=== PATIENT | female | born 1980 | race Caucasian/White ===

== ENCOUNTER 2017-11-04 02:11 | Outpatient (CLI) | payer OTHER | END 2017-11-04 02:12 | disposition critical access hospital (66) | LOC: EMS 02:11 | PROVIDERS: ATTEND Surgery | DX: R09.89 Other specified symptoms and signs involving the circulatory and respiratory systems (principal); F41.9 Anxiety disorder, unspecified | CPT/HCPCS: A0425; A0429 ==

== ENCOUNTER 2017-11-04 02:28 | Emergency (ER) | payer OTHER ==
--- NOTE | 2017-11-04 02:51 | ED Physician Documentation ---
PD HPI CHEST PAIN - Stated complaint Stated Complaint: ANXIETY - Chief complaint Chief Complaint: General - History obtained from History obtained from: Patient - History of Present Illness Timing - onset: Today Timing - onset during: Rest, Light activity Timing - details: Gradual onset, Still present (onset of feeling anxious and panic today, worse this evening. Has had similar in the past due to panic attacks. Usually can do breathing exercises and relax at home. Has come to ER about 1-2 times per year, per patient. Moved from [place] to [facility] last April. Has had anxiety increased since that time. Does have counselor. No recent change in meds.) Quality: Pressure, Tightness Location: Substernal Radiation: Back. No: Jaw, Neck Worsened by: No: Inspiration, Movement, Palpation Associated symptoms: Palpitations. No: Shortness of air, Nausea, Vomiting, Feeling faint / dizzy, General Weakness Similar symptoms before: Diagnosis (panic attacks) Recently seen: Not recently seen Review of Systems Constitutional: denies: Fever Nose: denies: Rhinorrhea / runny nose, Congestion Throat: denies: Sore throat Cardiac: reports: Chest pain / pressure. denies: Palpitations, Pedal edema, Calf pain Respiratory: reports: Dyspnea. denies: Cough, Hemoptysis, Wheezing GI: denies: Abdominal Pain, Nausea, Vomiting, Diarrhea : denies: Dysuria, Frequency Skin: denies: Rash, Lesions Neurologic: denies: Generalized weakness, Focal weakness, Numbness, Altered mental status, Headache, Head injury Endocrine: reports: Weight loss (about 25 lbs through diet and some exercise.) PD PAST MEDICAL HISTORY - Past Medical History Cardiovascular: None Respiratory: None Neuro: None Endocrine/Autoimmune: None Psych: Depression, Anxiety - Present Medications Home Medications: Ambulatory Orders Medication Instructions Recorded Confirmed Citalopram [CeleXA] 30 mg PO DAILY 11/04/17 11/04/17 Divalproex Sodium [Divalproex 500 mg PO QPM 11/04/17 11/04/17 Sodium ER] LORazepam [Ativan] 0.5 mg PO HS 11/04/17 11/04/17 Quetiapine Fumarate 300 mg PO QPM 11/04/17 11/04/17 Quetiapine Fumarate [Quetiapine 300 mg PO QPM 11/04/17 11/04/17 Fumarate ER] - Allergies Allergies/Adverse Reactions: Allergies Allergy/AdvReac Type Severity Reaction Status Date / Time Penicillins AdvReac Hives Verified 11/04/17 03:13 PD ED PE NORMAL - Vitals Vital signs reviewed: Yes (fast heart rate) - General General: Alert and oriented X 3, No acute distress, Well developed/nourished - HEENT HEENT: Ears normal, Pharynx benign - Neck Neck: Supple, no meningeal sign, No adenopathy - Cardiac Cardiac: No murmur. No: RRR (regular but tachycardic) - Respiratory Respiratory: Clear bilaterally - Abdomen Abdomen: Soft, Non tender - Female Female : Deferred - Rectal Rectal: Deferred - Back Back: No CVA TTP - Derm Derm: Normal color, Warm and dry - Extremities Extremities: No deformity, No tenderness to palpate, Normal ROM s pain, No edema , No calf tenderness / cord - Neuro Neuro: Alert and oriented X 3, No motor deficit, Normal speech Eye Opening: Spontaneous Motor: Obeys Commands Verbal: Oriented GCS Score: 15 - Psych Psych: Normal mood. No: Normal affect (slightly anxious but pleasant and interacts well. ) Results - Vitals Vitals: Vital Signs - 24 hr 11/04/17 11/04/17 11/04/17 02:30 03:22 03:56 Temperature 36.7 C Heart Rate 128 H 121 H 115 H Respiratory 18 18 16 Rate Blood Pressure 141/86 H 116/69 120/75 O2 Saturation 96 95 93 11/04/17 05:00 Temperature Heart Rate 109 H Respiratory 18 Rate Blood Pressure 109/76 O2 Saturation 94 Oxygen O2 Source Room air - EKG (time done) 04:21 Rate: Rate (enter#) (115) Rhythm: Sinus tachycardia [place]: Normal Intervals: Normal [place] QRS: Normal Ischemia: Normal ST segments. No: ST elevation c/w ischemia, ST depression, T wave inversion - Labs Labs: Laboratory Tests 11/04/17 11/04/17 03:10 03:10 WBC 9.6 RBC 4.36 Hgb 13.3 Hct 37.7 MCV 86.4 MCH 30.4 MCHC 35.2 RDW 15.4 H Plt Count 192 MPV 7.9 Neut # 6.9 H Lymph # 1.7 [place] # 0.9 Eos # 0.1 Baso # 0.1 Absolute Nucleated RBC 0.00 Nucleated RBC % 0.0 Sodium 138 Potassium 3.4 L Chloride 105 Carbon Dioxide 26 Anion Gap 7.0 BUN 18 Creatinine 0.9 Estimated GFR (MDRD) 71 L Glucose 126 H Calcium 8.8 Magnesium 2.1 Total Bilirubin 0.6 AST 21 ALT 28 Alkaline Phosphatase 29 L Total Protein 6.7 Albumin 3.8 Globulin 2.9 Albumin/Globulin Ratio 1.3 Lipase 22 Last Dose Date UNK Last Dose Time UNK Valproic Acid 18.1 PD MEDICAL DECISION MAKING - ED course Complexity details: re-evaluated patient (slept a few hours. Not feeling panic/ anxious at this point. Slight lightheaded ith standing up from having laid down awhile. Will rouse her slowly. ), considered differential (no obvious other cause for the chest pressure and fast heart rate. She says feels similar to prior episodes of panic disorder. ), d/w patient Departure - Departure Disposition: 01 Home, Self Care Clinical Impression: Panic attack, Sinus tachycardia Condition: Stable Record reviewed to determine appropriate education?: Yes Instructions: ED Panic Attack Follow-Up: ANJELICA Perera [Provider Group] Comments: Continue usual medications. Stay well hydrated and have some regular exercise several times weekly. Return if symptoms worse again.
[2017-11-04] MEDS ORDERED: LORazepam 0.5 MG TABLET PO STA (03:02)
[2017-11-04 03:20] LABS: BASOPHILS # (AUTO) 0.1 10^3/uL (0.0-0.1); BASOPHILS % (AUTO) 0.6 %; EOSINOPHILS # (AUTO) 0.1 10^3/uL (0.0-0.7); EOSINOPHILS % (AUTO) 0.6 %; HGB - HEMOGLOBIN 13.3 g/dL (12.0-16.0); LYMPHOCYTES # (AUTO) 1.7 10^3/uL (1.5-3.5); MEAN CORPUSCULAR HEMOGLOBIN 30.4 pg (27.0-31.0); MEAN CORPUSCULAR HGB CONC 35.2 g/dL (32.0-36.0); MEAN CORPUSCULAR VOLUME 86.4 fL (81.0-99.0); MEAN PLATELET VOLUME 7.9 fL (7.9-10.8); MONOCYTES # (AUTO) 0.9 10^3/uL (0.0-1.0); MONOCYTES % (AUTO) 9.2 %; NEUTROPHILS # (AUTO) 6.9 10^3/uL (1.5-6.6); NEUTROPHILS % (AUTO) 71.6 %; PLT - PLATELET COUNT 192 10^3/uL (130-450); RED BLOOD COUNT 4.36 10^6/uL (4.20-5.40); RED CELL DISTRIBUTION WIDTH 15.4 % (12.0-15.0); WHITE BLOOD COUNT 9.6 x10^3/uL (4.8-10.8)
[2017-11-04 03:32] LABS: ALBUMIN 3.8 g/dL (3.2-5.5); ALBUMIN/GLOBULIN RATIO 1.3 (1.0-2.2); ALKALINE PHOSPHATASE 29 IU/L (42-121); ALT ALANINE AMINOTRANSFERASE 28 IU/L (10-60); AST ASPARTATE AMINOTRANSFERASE 21 IU/L (10-42); BILIRUBIN,TOTAL 0.6 mg/dL (0.2-1.0); BUN - BLOOD UREA NITROGEN 18 mg/dL (6-20); CALCIUM 8.8 mg/dL (8.5-10.3); CARBON DIOXIDE - CO2 26 mmol/L (21-32); CHLORIDE 105 mmol/L (101-111); CREATININE 0.9 mg/dL (0.4-1.0); GFR - MDRD 71 (>89); GLUCOSE 126 mg/dL (70-100); LIPASE 22 U/L (22-51); MAGNESIUM 2.1 mg/dL (1.7-2.8); SODIUM 138 mmol/L (135-145); TOTAL PROTEIN 6.7 g/dL (6.7-8.2); VALPROIC ACID (DEPAKOTE) 18.1 ug/mL
[2017-11-04 08:29] VITALS: BP 118/84
== END 2017-11-04 08:31 | disposition home or self-care (01) ==
LOC: ED 02:28
DX: F41.9 Anxiety disorder, unspecified (principal); R00.0 Tachycardia, unspecified
CPT/HCPCS: 80053; 80164; 83690; 83735; 85025; 93005; 99283; 99284; A9270; 36415

== ENCOUNTER 2017-11-23 00:08 | Outpatient (CLI) | payer OTHER | END 2017-11-23 00:09 | disposition critical access hospital (66) | LOC: EMS 00:08 | PROVIDERS: ATTEND Surgery | DX: F41.9 Anxiety disorder, unspecified (principal) | CPT/HCPCS: A0425; A0429 ==

== ENCOUNTER 2017-11-23 00:23 | Emergency (ER) | payer OTHER ==
[2017-11-23] MEDS ORDERED: LORazepam 0.5 MG TABLET PO STA (00:53)
--- NOTE | 2017-11-23 00:54 | ED Physician Documentation ---
PD HPI MHE - Stated complaint Stated Complaint: PANIC ATTACK - Chief complaint Chief Complaint: MHE - History obtained from History obtained from: Patient, EMS - History of Present Illness Primary symptom: Anxiety Timing - onset: Today Similar symptoms before: Work up / diagnostics, Treatment Recently seen: Not recently seen - Additional information Additional information: Patient is a 37 year old female with a history of depression, anxiety, insomnia and ptsd who is presenting to the emergency department for a panic attack. patient states that she took her nightly medications which includes 600mg of trazadone as well as ativan but was still feeling anxious. patient stated that she did not want to take any more medications without being monitored so she called ems to bring her to the emergency department for evaluation. Review of Systems Ten Systems: 10 systems reviewed and negative Cardiac: denies: Chest pain / pressure, Palpitations Psychiatric: reports: Anxiety, Insomnia. 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 - Present Medications Home Medications: Ambulatory Orders Medication Instructions Recorded Confirmed Citalopram [CeleXA] 30 mg PO DAILY 11/04/17 11/04/17 Divalproex Sodium [Divalproex 500 mg PO QPM 11/04/17 11/04/17 Sodium ER] LORazepam [Ativan] 0.5 mg PO HS 11/04/17 11/04/17 Quetiapine Fumarate 300 mg PO QPM 11/04/17 11/04/17 Quetiapine Fumarate [Quetiapine 300 mg PO QPM 11/04/17 11/04/17 Fumarate ER] - Allergies Allergies/Adverse Reactions: Allergies Allergy/AdvReac Type Severity Reaction Status Date / Time Penicillins AdvReac Hives Verified 11/23/17 00:48 - Social History Does the pt smoke?: Yes Smoking Status: Current every day smoker Does the pt drink ETOH?: No Does the pt have substance abuse?: No - Immunizations Immunizations are current?: Yes - POLST Patient has POLST: No PD ED PE NORMAL - Vitals Vital signs reviewed: Yes - General General: Alert and oriented X 3 - HEENT HEENT: Atraumatic - Respiratory Respiratory: No respiratory distress - Abdomen Abdomen: Non distended - Derm Derm: Normal color, No rash - Extremities Extremities: No deformity - Neuro Neuro: Alert and oriented X 3, No motor deficit Eye Opening: Spontaneous PD ED PE EXPANDED - General General: Alert, Anxious - Cardiac Cardiac: Tachy - Psych Psych: Anxious Results - Vitals Vitals: Vital Signs - 24 hr 11/23/17 11/23/17 11/23/17 00:25 01:42 02:04 Temperature 36.5 C Heart Rate 123 H 115 H Respiratory 18 16 Rate Blood Pressure 143/89 H O2 Saturation 96 Oxygen O2 Source Room air PD MEDICAL DECISION MAKING - ED course Complexity details: reviewed old records, reviewed results, re-evaluated patient , considered differential, d/w patient ED course: patient was seen and examined at bedside. patient was treated with ativan 0.5mg. patient's tachycardia and anxiety improved. Patient required no further inpatient management and was stable for discharge with outpatient follow up. Departure - Departure Disposition: 01 Home, Self Care Clinical Impression: Panic attack Condition: Stable Instructions: ED Stress React, ED Panic Attack Follow-Up: primary,care provider [Other] - Tomorrow Comments: Your symptoms tonight were likely secondary to a panic attack. You should work on your coping mechanisms including breathing exercises and cognitive therapy. You should work with your health care provider and incorporate exercise into your regiment. You may return to the emergency department at any time if needed for new, worsening or uncontrollable symptoms.
[2017-11-23 05:15] VITALS: BP 104/72
== END 2017-11-23 05:39 | disposition home or self-care (01) ==
LOC: EDUNIT# → ED 00:23
DX: F41.0 Panic disorder [episodic paroxysmal anxiety] (principal); F17.200 Nicotine dependence, unspecified, uncomplicated; R00.0 Tachycardia, unspecified
CPT/HCPCS: 99283; A9270

== ENCOUNTER 2017-11-29 10:21 | Emergency (ER) | payer OTHER ==
--- NOTE | 2017-11-29 13:14 | ED Physician Documentation ---
PD HPI LOWER EXT INJURY - Stated complaint Stated Complaint: L LEG PX-LUMP/BRUISE - Chief complaint Chief Complaint: Ext Problem - History obtained from History obtained from: Patient - History of Present Illness PD HPI LOW EXT INJURY LOCATION: Other (She has had indolent and atraumatic left leg pain of the calf for the last 3 weeks with some bruising, no recollected injury. She denies chest pain or trouble breathing. She has never had a DVT before. 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 - Present Medications Home Medications: Ambulatory Orders Medication Instructions Recorded Confirmed Citalopram [CeleXA] 30 mg PO DAILY 11/04/17 11/04/17 Divalproex Sodium [Divalproex 500 mg PO QPM 11/04/17 11/04/17 Sodium ER] LORazepam [Ativan] 0.5 mg PO HS 11/04/17 11/04/17 Quetiapine Fumarate 300 mg PO QPM 11/04/17 11/04/17 Quetiapine Fumarate [Quetiapine 300 mg PO QPM 11/04/17 11/04/17 Fumarate ER] - Allergies Allergies/Adverse Reactions: Allergies Allergy/AdvReac Type Severity Reaction Status Date / Time Penicillins AdvReac Hives Verified 11/23/17 00:48 - Social History Does the pt smoke?: Yes Smoking Status: Current every day smoker Does the pt drink ETOH?: No Does the pt have substance abuse?: No - Immunizations Immunizations are current?: Yes - POLST Patient has POLST: No PD ED PE NORMAL - Vitals Vital signs reviewed: Yes - General General: Alert and oriented X 3, No acute distress - Cardiac Cardiac: RRR, No murmur - Respiratory Respiratory: No respiratory distress, Clear bilaterally - Abdomen Abdomen: Soft, Non tender - Extremities Extremities: Other (There is some firm areas of ecchymosis on the calf, no obvious asymmetry but she does have a little sock line on the left that is not present on the right.) - Neuro Neuro: Alert and oriented X 3, Normal speech - Psych Psych: Normal mood, Normal affect Results - Vitals Vitals: Vital Signs - 24 hr 11/29/17 10:32 Temperature 36.5 C Heart Rate 112 H Respiratory 20 Rate Blood Pressure 136/78 H O2 Saturation 98 Oxygen O2 Source Room air - Labs Labs: Laboratory Tests 11/29/17 11/29/17 11/29/17 13:26 13:26 13:26 WBC 7.5 RBC 4.55 Hgb 13.8 Hct 39.7 MCV 87.2 MCH 30.3 MCHC 34.8 RDW 15.3 H Plt Count 199 MPV 7.6 L Neut # 5.0 Lymph # 1.7 [place] # 0.7 Eos # 0.1 Baso # 0.1 Absolute Nucleated RBC 0.00 Nucleated RBC % 0.0 PT 11.4 INR 1.0 Sodium 135 Potassium 3.7 Chloride 103 Carbon Dioxide 25 Anion Gap 7.0 BUN 14 Creatinine 0.6 Estimated GFR (MDRD) 114 Glucose 129 H Calcium 9.4 Total Bilirubin 0.9 AST 25 ALT 32 Alkaline Phosphatase 31 L Total Protein 7.1 Albumin 3.9 Globulin 3.2 Albumin/Globulin Ratio 1.2 Lipase 23 Serum HCG, Qual 11/29/17 13:32 WBC RBC Hgb Hct MCV MCH MCHC RDW Plt Count MPV Neut # Lymph # [place] # Eos # Baso # Absolute Nucleated RBC Nucleated RBC % PT INR Sodium Potassium Chloride Carbon Dioxide Anion Gap BUN Creatinine Estimated GFR (MDRD) Glucose Calcium Total Bilirubin AST ALT Alkaline Phosphatase Total Protein Albumin Globulin Albumin/Globulin Ratio Lipase Serum HCG, Qual NEGATIVE - Rads (name of study) lle dvT SCAN Radiology: EMP read contemporaneously (NO DVT) Departure - Departure Disposition: Home, Self Care Clinical Impression: Left leg swelling Clinical Impression: (Ruled Out): Deep vein thrombosis Condition: Good Record reviewed to determine appropriate education?: Yes Instructions: ED Edema Legs Bilateral Comments: Call your doctor to arrange a follow-up appointment, make the next available appointment. In the interim, return anytime if worse or if new symptoms develop. Your blood pressure was elevated today on check into the emergency department. This does not mean that you have hypertension, it is a common phenomenon to come to the emergency department and have elevated blood pressure. I recommend that you see your primary care physician within the week to have it rechecked when you are feeling better.
[2017-11-29 13:37] LABS: BASOPHILS # (AUTO) 0.1 10^3/uL (0.0-0.1); BASOPHILS % (AUTO) 0.7 %; EOSINOPHILS # (AUTO) 0.1 10^3/uL (0.0-0.7); EOSINOPHILS % (AUTO) 0.7 %; HGB - HEMOGLOBIN 13.8 g/dL (12.0-16.0); LYMPHOCYTES # (AUTO) 1.7 10^3/uL (1.5-3.5); LYMPHOCYTES % (AUTO) 22.1 %; MEAN CORPUSCULAR HEMOGLOBIN 30.3 pg (27.0-31.0); MEAN CORPUSCULAR HGB CONC 34.8 g/dL (32.0-36.0); MEAN CORPUSCULAR VOLUME 87.2 fL (81.0-99.0); MEAN PLATELET VOLUME 7.6 fL (7.9-10.8); MONOCYTES # (AUTO) 0.7 10^3/uL (0.0-1.0); MONOCYTES % (AUTO) 9.7 %; NEUTROPHILS % (AUTO) 66.8 %; PLT - PLATELET COUNT 199 10^3/uL (130-450); RED BLOOD COUNT 4.55 10^6/uL (4.20-5.40); RED CELL DISTRIBUTION WIDTH 15.3 % (12.0-15.0); WHITE BLOOD COUNT 7.5 x10^3/uL (4.8-10.8)
[2017-11-29 13:48] LABS: ALBUMIN 3.9 g/dL (3.2-5.5); ALBUMIN/GLOBULIN RATIO 1.2 (1.0-2.2); BILIRUBIN,TOTAL 0.9 mg/dL (0.2-1.0); CALCIUM 9.4 mg/dL (8.5-10.3); CREATININE 0.6 mg/dL (0.4-1.0); TOTAL PROTEIN 7.1 g/dL (6.7-8.2)
[2017-11-29 14:02] LABS: HCG,QUALITATIVE BLOOD NEGATIVE
[2017-11-29 14:10] LABS: PT - PROTHROMBIN TIME 11.4 secs (9.9-12.6)
[2017-11-29 16:05] VITALS: BP 131/74
--- NOTE | 2017-11-29 17:32 | Ultrasound Report ---
LEFT LEG VENOUS DUPLEX: 11/29/2017 CLINICAL INDICATION: Leg pain. TECHNIQUE: Real-time sonographic vascular imaging was performed by the sole molding machine operator through the left lower extremity utilizing both color flow and Doppler spectral analysis. Multiple insurance account representative static images were saved for review. FINDINGS: A left lower extremity venous sonogram is performed revealing the common femoral, superficial femoral, profunda femoris, and popliteal veins to be adequately visualized without intraluminal defects. There is normal venous compression, augmentation, phasicity, and spontaneity of venous flow. In the calf, the visualized more cephalad portions of posterior tibial and peroneal veins are grossly compressible, without filling defects. IMPRESSION: NO EVIDENCE OF DEEP VENOUS THROMBOSIS. TD: 11/29/2017 15:23
== END 2017-11-29 15:10 | disposition home or self-care (01) ==
LOC: ED 10:21
DX: M79.605 Pain in left leg (principal); R60.0 Localized edema; E66.9 Obesity, unspecified; F17.200 Nicotine dependence, unspecified, uncomplicated; R03.0 Elevated blood-pressure reading, without diagnosis of hypertension
CPT/HCPCS: 36415; 80053; 81001; 81003; 83690; 84703; 85025; 85610; 87086; 99283

== ENCOUNTER 2018-01-10 03:43 | Outpatient (CLI) | payer OTHER | END 2018-01-10 03:44 | disposition critical access hospital (66) | LOC: EMS 03:43 | PROVIDERS: ATTEND Surgery | DX: R11.2 Nausea with vomiting, unspecified (principal) | CPT/HCPCS: A0425; A0429 ==

== ENCOUNTER 2018-01-10 04:05 | Emergency (ER) | payer OTHER ==
--- NOTE | 2018-01-10 04:17 | ED Physician Documentation ---
PD HPI NVD - Stated complaint Stated Complaint: N/V - Chief complaint Chief Complaint: General - History obtained from History obtained from: Patient, EMS - History of Present Illness Timing - onset: Last night Timing - details: Abrupt onset Associated symptoms: Dizzy. No: Fever, Abdominal pain Improved by: Other (no ameliorating factors) Worsened by: Eating Similar symptoms before: No diagnosis Recently seen: Emergency Dept - Additonal information Additional information: took routine nighttime meds last night and vomited, has had nausea and anxiety since then. also c/o diarrhea, extremity paresthesias, mild dizziness. she says she took an extra dose of ativan and was able to keep that down, but called 911 due to ongoing anxiety and wanting to be monitored if she is to take or be given more medication for anxiety. similar ED visits for same Review of Systems Constitutional: reports: Reviewed and negative Cardiac: reports: Reviewed and negative Respiratory: reports: Reviewed and negative GI: reports: Nausea, Vomiting, Diarrhea. denies: Abdominal Pain, Constipation : denies: Dysuria, Frequency PD PAST MEDICAL HISTORY - Past Medical History Past Medical History: Yes Other Past Medical History: anxiety - Present Medications Home Medications: Ambulatory Orders Medication Instructions Recorded Confirmed Citalopram [CeleXA] 30 mg PO DAILY 11/04/17 11/04/17 Divalproex Sodium [Divalproex 500 mg PO QPM 11/04/17 11/04/17 Sodium ER] LORazepam [Ativan] 0.5 mg PO HS 11/04/17 11/04/17 Quetiapine Fumarate 300 mg PO QPM 11/04/17 11/04/17 Quetiapine Fumarate [Quetiapine 300 mg PO QPM 11/04/17 11/04/17 Fumarate ER] Ondansetron Odt [Zofran] 4 mg TL Q6H PRN #14 tablet 01/10/18 - Allergies Allergies/Adverse Reactions: Allergies Allergy/AdvReac Type Severity Reaction Status Date / Time Penicillins AdvReac Hives Verified 11/23/17 00:48 - Living Situation Living Situation: reports: With spouse/s.o. Living Arrangement: reports: At home PD ED PE NORMAL - Vitals Vital signs reviewed: Yes - General General: Alert and oriented X 3, No acute distress, Well developed/nourished - HEENT HEENT: Moist mucous membranes - Cardiac Cardiac: RRR, No murmur - Respiratory Respiratory: No respiratory distress, Clear bilaterally - Abdomen Abdomen: Soft, Non tender, Non distended - Derm Derm: Normal color, Warm and dry Results - Vitals Vitals: Vital Signs - 24 hr 01/10/18 01/10/18 04:05 06:22 Temperature 36.7 C 36.7 C Heart Rate 90 81 Respiratory 22 16 Rate Blood Pressure 126/94 H 118/76 O2 Saturation 96 96 Oxygen O2 Source Room air PD MEDICAL DECISION MAKING - ED course Complexity details: re-evaluated patient, considered differential, d/w patient ED course: appears well hydrated, no apparent/overt indications of anxiousness. I suggested OTC zofran and then another dose of ativan PO. patient adamantly insisted on IV and fluids IV; she is unwilling to try PO zofran or even IM antiemetic. given 1 liter NS bolus, reevaluated and found to be sleeping quietly , arousable to verbal. she reports resolution of symptoms, wants to sleep in ED. she was allowed to rest for another 30-45 minutes, then discharged. - Sepsis Event Vital Signs: Vital Signs - 24 hr 01/10/18 01/10/18 04:05 06:22 Temperature 36.7 C 36.7 C Heart Rate 90 81 Respiratory 22 16 Rate Blood Pressure 126/94 H 118/76 O2 Saturation 96 96 Oxygen O2 Source Room air Departure - Departure Disposition: 01 Home, Self Care Clinical Impression: Vomiting, Anxiety Condition: Good Instructions: ED Diet Vomiting Diarrhea, ED Panic Attack, ED Nausea Vomiting Follow-Up: DEMETRIO ROBERTS MD [Primary Care Provider] - Prescriptions: Ondansetron Odt [Zofran] 4 mg TL Q6H PRN #14 tablet PRN Reason: Nausea / Vomiting Comments: You can try Imodium for diarrhea. This is an [id number] medication; follow label instructions. Discharge Date/Time: 01/10/18 06:53
[2018-01-10] MEDS: ONDANSETRON 4 MG/2 ML VIAL IVP STA (05:01)
[2018-01-10] MEDS: SODIUM CHLORIDE 0.9% 1,000 ML IV STA (05:01)
[2018-01-10 06:23] VITALS: BP 118/76
== END 2018-01-10 06:53 | disposition home or self-care (01) ==
LOC: EDUNIT# → ED 04:05 → SUPCPDRO 04:05 → ED 06:53
DX: R11.10 Vomiting, unspecified (principal); F41.9 Anxiety disorder, unspecified
CPT/HCPCS: 96361; 96374; 99283

== ENCOUNTER 2018-01-17 00:36 | Outpatient (CLI) | payer OTHER | END 2018-01-17 00:37 | disposition critical access hospital (66) | LOC: EMS 00:36 | PROVIDERS: ATTEND Surgery | DX: R07.9 Chest pain, unspecified (principal); F41.9 Anxiety disorder, unspecified | CPT/HCPCS: A0425; A0429 ==

== ENCOUNTER 2018-01-17 00:47 | Emergency (ER) | payer OTHER ==
--- NOTE | 2018-01-17 03:05 | ED Physician Documentation ---
History of Present Illness - Stated complaint Stated Complaint: PANIC ATTACK - Chief complaint Chief Complaint: MHE - History obtained from History obtained from: Patient - History of Present Illness Timing: Enter time (23:00), Today Pain level max: 0 Pain level now: 0 Improved by: improved while awaiting ED evaluation - Additonal information Additional information: patient c/o "really, really, really, really bad panic attack" (per patient). at approximately 11 PM tonight, she experienced generalized anxiety and sensation of "heart fluttering" palpitations. BIBA. Per medic report, patient was in no obvious distress initially,but became increasingly anxious and tachycardic as they approached the hospital. this is her [facility]th [facility] ED visit in past 3 months, predominantly for similar c/o. Patient feels that her symptoms tonight were aggravated by the sounds of the local [employer] display Review of Systems Cardiac: reports: Palpitations. 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 - Present Medications Home Medications: Ambulatory Orders Medication Instructions Recorded Confirmed Citalopram [CeleXA] 30 mg PO DAILY 11/04/17 11/04/17 Divalproex Sodium [Divalproex 500 mg PO QPM 11/04/17 11/04/17 Sodium ER] LORazepam [Ativan] 0.5 mg PO HS 11/04/17 11/04/17 Quetiapine Fumarate 300 mg PO QPM 11/04/17 11/04/17 Quetiapine Fumarate [Quetiapine 300 mg PO QPM 11/04/17 11/04/17 Fumarate ER] Ondansetron Odt [Zofran] 4 mg TL Q6H PRN #14 tablet 01/10/18 - Allergies Allergies/Adverse Reactions: Allergies Allergy/AdvReac Type Severity Reaction Status Date / Time Penicillins AdvReac Hives Verified 11/23/17 00:48 - Social History Does the pt smoke?: Yes Smoking Status: Current every day smoker Does the pt drink ETOH?: No Does the pt have substance abuse?: No - Immunizations Immunizations are current?: Yes - POLST Patient has POLST: No PD ED PE NORMAL - Vitals Vital signs reviewed: Yes - General General: Alert and oriented X 3, No acute distress, Well developed/nourished, Other (asleep when I enter room, awakens to verbal stimulus. NAD. ) - Cardiac Cardiac: No murmur, No gallop, No rub - Respiratory Respiratory: No respiratory distress, Clear bilaterally - Abdomen Abdomen: Soft, Non tender - Neuro Neuro: Alert and oriented X 3 PD ED PE EXPANDED - Cardiac Cardiac: Tachy, Regular Rhythm Results - Vitals Vitals: Vital Signs - 24 hr 01/17/18 01/17/18 01/17/18 00:55 01:23 04:50 Temperature 37 C Heart Rate 155 H 106 H 98 Respiratory 22 20 18 Rate Blood Pressure 150/104 H 144/91 H O2 Saturation 97 94 97 01/17/18 06:25 Temperature Heart Rate 91 Respiratory 16 Rate Blood Pressure 139/89 H O2 Saturation 98 Oxygen O2 Source Room air - EKG (time done) No standard instances Rate: Tachy Rhythm: Sinus tachycardia (155) [place]: Normal Intervals: Normal [place] QRS: Normal Ischemia: Normal ST segments PD MEDICAL DECISION MAKING - ED course Complexity details: reviewed old records, reviewed results, re-evaluated patient , considered differential, d/w patient ED course: When patient first arrived and was brought into ED on EMS stretcher, she was crying and appeared to be anxious. By the time I was able to evaluate patient at bedside, she was asleep. EKG ST 155 bpm, but rate gradually lowered to 100s, and was 90s when asleep, including when I first entered room. Upon waking patient, heart rate quickly went to 120s, and again gradually lowered as we conversed. She says she has had the rapid heart rate before and has even had Holter monitor (per her description, it sounds like no significant findings except tachycardia). She was calm during H+P and was comfortable with discharge home. As with previous visit, she asked to stay in ED until morning. - Sepsis Event Vital Signs: Vital Signs - 24 hr 01/17/18 01/17/18 01/17/18 00:55 01:23 04:50 Temperature 37 C Heart Rate 155 H 106 H 98 Respiratory 22 20 18 Rate Blood Pressure 150/104 H 144/91 H O2 Saturation 97 94 97 01/17/18 06:25 Temperature Heart Rate 91 Respiratory 16 Rate Blood Pressure 139/89 H O2 Saturation 98 Oxygen O2 Source Room air Departure - Departure Disposition: 01 Home, Self Care Clinical Impression: Anxiety, Sinus tachycardia Condition: Good Instructions: ED Palpitations, ED Panic Attack Follow-Up: DEMETRIO ROBERTS MD [Primary Care Provider] - Discharge Date/Time: 01/17/18 06:25
[2018-01-17 06:26] VITALS: BP 139/89
== END 2018-01-17 06:25 | disposition home or self-care (01) ==
LOC: EDUNIT# → SUPCPDRO 00:47 → ED 00:47
DX: F41.9 Anxiety disorder, unspecified (principal); R00.0 Tachycardia, unspecified; F17.200 Nicotine dependence, unspecified, uncomplicated
CPT/HCPCS: 93005; 99283

== ENCOUNTER 2018-04-10 11:07 | Emergency (ER) | payer OTHER ==
[2018-04-10] MEDS ORDERED: LORazepam 0.5 MG TABLET PO STA (11:45)
--- NOTE | 2018-04-10 12:04 | ED Physician Documentation ---
PD HPI MHE - Stated complaint Stated Complaint: ANXIETY ATTACK - Chief complaint Chief Complaint: MHE - History obtained from History obtained from: Patient - History of Present Illness Primary symptom: Anxiety, Other (vertigo and feeling off balance; left ear pressure and feels like "swimming under water".) Timing - onset: Today Contributing factors: Other (feeling nauseated and dizzy today, with ear pain. [place] anxious and then panic attack when felt off balance walking.). No: Substance abuse - ETOH, Substance abuse - drugs, Off meds Similar symptoms before: Diagnosis (has had panic attacks in the past. Has not had ear problems/vertigo in the past.) Review of Systems Constitutional: denies: Fever, Chills Ears: reports: Ear pain. denies: Drainage/discharge, Tinnitus/ringing (but has sound of being underwater.) Nose: reports: Congestion. denies: Rhinorrhea / runny nose Throat: denies: Sore throat Respiratory: denies: Cough GI: reports: Nausea, Vomiting (today). denies: Diarrhea : denies: Dysuria, Frequency Skin: denies: Rash Neurologic: reports: Generalized weakness. 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 - Present Medications Home Medications: Ambulatory Orders Medication Instructions Recorded Confirmed Citalopram [CeleXA] 30 mg PO DAILY 11/04/17 11/04/17 Divalproex Sodium [Divalproex 500 mg PO QPM 11/04/17 11/04/17 Sodium ER] LORazepam [Ativan] 0.5 mg PO HS 11/04/17 11/04/17 Quetiapine Fumarate 300 mg PO QPM 11/04/17 11/04/17 Quetiapine Fumarate [Quetiapine 300 mg PO QPM 11/04/17 11/04/17 Fumarate ER] Ondansetron Odt [Zofran] 4 mg TL Q6H PRN #14 tablet 01/10/18 Dexamethasone [Decadron] 4 mg PO DAILY #5 tablet 09/25/18 Meclizine [Antivert] 25 mg PO Q6H PRN #20 tablet 04/10/18 - Allergies Allergies/Adverse Reactions: Allergies Allergy/AdvReac Type Severity Reaction Status Date / Time Penicillins AdvReac Hives Verified 04/10/18 11:18 - Social History Does the pt smoke?: Yes Smoking Status: Current every day smoker Does the pt drink ETOH?: No Does the pt have substance abuse?: No - Immunizations Immunizations are current?: Yes - POLST Patient has POLST: No PD ED PE NORMAL - Vitals Vital signs reviewed: Yes - General General: Alert and oriented X 3, Well developed/nourished, Other (anxious) - HEENT HEENT: PERRL, EOMI (mild nystagmus to the left), Moist mucous membranes. No: Ears normal (left TM with fluid bulging; not really red. ), Pharynx benign - Neck Neck: Supple, no meningeal sign, No adenopathy - Cardiac Cardiac: RRR, No murmur - Respiratory Respiratory: Clear bilaterally - Abdomen Abdomen: Soft, Non tender - Back Back: No CVA TTP - Derm Derm: Normal color, Warm and dry, No rash - Neuro Neuro: Alert and oriented X 3, No motor deficit, Normal speech Results - Vitals Vitals: Oxygen O2 Source Room air - Labs Labs: Laboratory Tests 04/10/18 04/10/18 04/10/18 12:33 12:33 12:33 WBC 8.8 RBC 4.87 Hgb 14.0 Hct 41.1 MCV 84.4 MCH 28.7 MCHC 34.0 RDW 15.8 H Plt Count 238 MPV 7.2 L Neut # (Auto) 6.8 H Lymph # (Auto) 1.1 L [place] # (Auto) 0.8 Eos # (Auto) 0.0 Baso # (Auto) 0.1 Absolute Nucleated RBC 0.00 Nucleated RBC % 0.0 Sodium 136 Potassium 4.4 Chloride 103 Carbon Dioxide 24 Anion Gap 9.0 BUN 11 Creatinine 0.8 Estimated GFR (MDRD) 81 L Glucose 111 H Calcium 9.0 Magnesium 2.0 Total Bilirubin 0.6 AST 15 ALT 11 Alkaline Phosphatase 26 L Total Protein 7.1 Albumin 3.8 Globulin 3.3 Albumin/Globulin Ratio 1.2 Lipase 28 Last Dose Date UNKNOWN Last Dose Time UNKNOWN Valproic Acid 28.6 PD MEDICAL DECISION MAKING - ED course Complexity details: reviewed results, considered differential (having anxiety attack but also triggered by ear pain, diminished hearing left and vertigo. Has ear infection on left. ), d/w patient - Sepsis Event Vital Signs: Oxygen O2 Source Room air Departure - Departure Disposition: 01 Home, Self Care Clinical Impression: Vertigo, Panic attack Serous otitis media Qualifiers: Chronicity: acute Laterality: left Recurrence: not specified as recurrent Qualified Code(s): H65.02 - Acute serous otitis media, left ear Condition: Stable Record reviewed to determine appropriate education?: Yes Instructions: ED Otitis Media Serous Adult Follow-Up: DEMETRIO ROBERTS MD [Primary Care Provider] - Prescriptions: Dexamethasone [Decadron] 4 mg PO DAILY #5 tablet Meclizine [Antivert] 25 mg PO Q6H PRN #20 tablet PRN Reason: Vertigo Comments: There is some fluid behind her left eardrum and I think some of your dizziness is coming from in her ear pressure. Use the Decadron anti-inflammatory daily for 5 more days. Meclizine if needed for dizziness and feeling off balance. Continue your other usual medications. Your Depakote level is slightly below range, but is not high which was a concern with your symptoms. Follow-up with your primary care if not improved over the next few days. Discharge Date/Time: 04/10/18 14:44
[2018-04-10 12:40] LABS: BASOPHILS # (AUTO) 0.1 10^3/uL (0.0-0.1); BASOPHILS % (AUTO) 0.9 %; EOSINOPHILS % (AUTO) 0.2 %; LYMPHOCYTES # (AUTO) 1.1 10^3/uL (1.5-3.5); MEAN CORPUSCULAR HEMOGLOBIN 28.7 pg (27.0-31.0); MEAN CORPUSCULAR VOLUME 84.4 fL (81.0-99.0); MEAN PLATELET VOLUME 7.2 fL (7.9-10.8); MONOCYTES # (AUTO) 0.8 10^3/uL (0.0-1.0); MONOCYTES % (AUTO) 8.6 %; NEUTROPHILS # (AUTO) 6.8 10^3/uL (1.5-6.6); NEUTROPHILS % (AUTO) 77.3 %; PLT - PLATELET COUNT 238 10^3/uL (130-450); RED BLOOD COUNT 4.87 10^6/uL (4.20-5.40); RED CELL DISTRIBUTION WIDTH 15.8 % (12.0-15.0); WHITE BLOOD COUNT 8.8 x10^3/uL (4.8-10.8)
[2018-04-10 12:58] LABS: ALBUMIN 3.8 g/dL (3.2-5.5); ALBUMIN/GLOBULIN RATIO 1.2 (1.0-2.2); BILIRUBIN,TOTAL 0.6 mg/dL (0.2-1.0); CREATININE 0.8 mg/dL (0.4-1.0); TOTAL PROTEIN 7.1 g/dL (6.7-8.2)
[2018-04-10 12:59] LABS: VALPROIC ACID (DEPAKOTE) 28.6 ug/mL
[2018-04-10] MEDS ORDERED: DEXAMETHASONE 10 MG/ML VIAL PO STA (13:10)
[2018-04-10] MEDS ORDERED: MECLIZINE 12.5 MG TABLET PO STA (13:10)
[2018-04-10 14:44] VITALS: BP 117/77
== END 2018-04-10 14:44 | disposition home or self-care (01) ==
LOC: EDUNIT# → ED 11:07
DX: H65.02 Acute serous otitis media, left ear (principal); R42 Dizziness and giddiness; F41.0 Panic disorder [episodic paroxysmal anxiety]; F17.200 Nicotine dependence, unspecified, uncomplicated
CPT/HCPCS: 36415; 80053; 80164; 83690; 83735; 85025; 99283; 99284; A9270

== ENCOUNTER 2018-04-10 22:51 | Outpatient (CLI) | payer OTHER | END 2018-04-10 22:52 | disposition critical access hospital (66) | LOC: EMS 22:51 | PROVIDERS: ATTEND Surgery | DX: F41.0 Panic disorder [episodic paroxysmal anxiety] (principal) | CPT/HCPCS: A0425; A0429 ==

== ENCOUNTER 2018-07-18 12:35 | Outpatient (CLI) | payer OTHER | END 2018-07-18 12:36 | disposition critical access hospital (66) | LOC: EMS 12:35 | PROVIDERS: ATTEND Surgery | DX: F41.9 Anxiety disorder, unspecified (principal) | CPT/HCPCS: A0425; A0429 ==

== ENCOUNTER 2018-07-18 12:51 | Emergency (ER) | payer OTHER ==
--- NOTE | 2018-07-18 12:56 | ED Physician Documentation ---
History of Present Illness - Stated complaint Stated Complaint: ANXIETY ATTACK - History obtained from History obtained from: Patient, EMS - History of Present Illness Timing: Today (38-year-old woman with history of anxiety. She had a panic attack today triggered by her children going back to school. 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 - Present Medications Home Medications: Ambulatory Orders Medication Instructions Recorded Confirmed Citalopram [CeleXA] 30 mg PO DAILY 11/04/17 11/04/17 Divalproex Sodium [Divalproex 500 mg PO QPM 11/04/17 11/04/17 Sodium ER] LORazepam [Ativan] 0.5 mg PO HS 11/04/17 11/04/17 Quetiapine Fumarate 300 mg PO QPM 11/04/17 11/04/17 Quetiapine Fumarate [Quetiapine 300 mg PO QPM 11/04/17 11/04/17 Fumarate ER] Ondansetron Odt [Zofran] 4 mg TL Q6H PRN #14 tablet 01/10/18 Dexamethasone [Decadron] 4 mg PO DAILY #5 tablet 04/10/18 Meclizine [Antivert] 25 mg PO Q6H PRN #20 tablet 04/10/18 - Allergies Allergies/Adverse Reactions: Allergies Allergy/AdvReac Type Severity Reaction Status Date / Time Penicillins AdvReac Hives Verified 07/18/18 13:02 - Social History Does the pt smoke?: Yes Smoking Status: Current every day smoker Does the pt drink ETOH?: No Does the pt have substance abuse?: No - Immunizations Immunizations are current?: Yes - POLST Patient has POLST: No PD ED PE NORMAL - Vitals Vital signs reviewed: Yes - General General: Alert and oriented X 3, Other (Tearful and anxious) - Cardiac Cardiac: RRR, No murmur - Neuro Neuro: Alert and oriented X 3, Normal speech - Psych Psych: Normal mood, Normal affect Results - Vitals Vitals: Vital Signs - 24 hr 07/18/18 12:47 Temperature 36.4 C L Heart Rate 90 Respiratory 20 Rate Blood Pressure 120/77 O2 Saturation 96 Oxygen O2 Source Room air PD MEDICAL DECISION MAKING - ED course ED course: 38-year-old woman presents with a panic attack. She wanted to be monitored while taking her own Ativan. I advised her that it was a perfectly safe medication if taken according to package instructions. She took her own Ativan here and we will watch her for about half an hour. Departure - Departure Disposition: 01 Home, Self Care Clinical Impression: Panic attack Condition: Good Record reviewed to determine appropriate education?: Yes Instructions: ED Panic Attack Comments: As discussed, it is perfectly safe to take a lorazepam/Ativan at home without monitoring as long as you follow the package instructions and do not drink or drive with it.
[2018-07-18 15:03] VITALS: BP 118/74
== END 2018-07-18 14:35 | disposition home or self-care (01) ==
LOC: EDUNIT# → ED 12:51
DX: F41.0 Panic disorder [episodic paroxysmal anxiety] (principal); F17.200 Nicotine dependence, unspecified, uncomplicated
CPT/HCPCS: 99283

== ENCOUNTER 2019-01-08 18:42 | Emergency (ER) | payer OTHER ==
[2019-01-08] MEDS ORDERED: ASPIRIN CHEW 81 MG TABLET PO STA (19:08)
--- NOTE | 2019-01-08 19:10 | ED Physician Documentation ---
PD HPI CHEST PAIN - Stated complaint Stated Complaint: CHEST/BACK PX - Chief complaint Chief Complaint: Cardiac - History obtained from History obtained from: Patient - History of Present Illness Timing - onset: Other (For the last 2 days she has had pain near the left scapula and chest tightness associated with shortness of breath. It started at rest and has been persistent but not progressive. She denies calf pain or pedal edema. She is a smoker but is not on control. No recent travel or family history of PE/DVT.) Review of Systems Constitutional: reports: Reviewed and negative Throat: reports: Reviewed and negative Cardiac: reports: Chest pain / pressure. denies: Palpitations, Pedal edema, C babs pain Respiratory: reports: Dyspnea. 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 - Present Medications Home Medications: Ambulatory Orders Medication Instructions Recorded Confirmed Divalproex Sodium [Divalproex 500 mg PO QPM 11/04/17 11/04/17 Sodium ER] LORazepam [Ativan] 0.5 mg PO HS 11/04/17 11/04/17 Quetiapine Fumarate [Quetiapine 300 mg PO QPM 11/04/17 11/04/17 Fumarate ER] RX: Citalopram [CeleXA] 30 mg PO DAILY 11/04/17 11/04/17 RX: Quetiapine Fumarate 300 mg PO QPM 11/04/17 11/04/17 Ondansetron Odt [Zofran] 4 mg TL Q6H PRN #14 tablet 01/10/18 RX: Meclizine [Antivert] 25 mg PO Q6H PRN #20 tablet 04/10/18 dexAMETHasone [Decadron] 4 mg PO DAILY #5 tablet 04/10/18 - Allergies Allergies/Adverse Reactions: Allergies Allergy/AdvReac Type Severity Reaction Status Date / Time Penicillins AdvReac Hives Verified 07/18/18 13:02 - Social History Does the pt smoke?: Yes Smoking Status: Current every day smoker Does the pt drink ETOH?: No Does the pt have substance abuse?: No - Immunizations Immunizations are current?: Yes - POLST Patient has POLST: No PD ED PE NORMAL - Vitals Vital signs reviewed: Yes - General General: Alert and oriented X 3, No acute distress - HEENT HEENT: PERRL, EOMI - Neck Neck: Supple, no meningeal sign, No bony TTP - Cardiac Cardiac: Other (Tachycardic but regular without murmur) - Respiratory Respiratory: No respiratory distress, Clear bilaterally - Abdomen Abdomen: Non tender - Back Back: No CVA TTP, No spinal TTP - Derm Derm: Normal color - Extremities Extremities: No edema, No calf tenderness / cord - Neuro Neuro: Alert and oriented X 3, Normal speech Results - Vitals Vitals: Vital Signs - 24 hr 01/08/19 01/08/19 01/08/19 18:46 18:53 20:23 Temperature 36.7 C Heart Rate 128 H 97 Respiratory 16 17 Rate Blood Pressure 139/81 H 95/72 Blood Pressure 129/84 H [Left] Blood Pressure 126/87 H [Right] O2 Saturation 97 95 Oxygen O2 Source Room air - EKG (time done) 1850 Rate: Rate (enter#) (121) Rhythm: Sinus tachycardia [place]: Normal Intervals: Normal [place] QRS: Normal Ischemia: Normal ST segments Computer interpretation: Agree with computer - Labs Labs: Laboratory Tests 01/08/19 01/08/19 01/08/19 19:06 19:06 19:06 WBC 10.1 RBC 4.97 Hgb 14.1 Hct 43.4 MCV 87.3 MCH 28.4 MCHC 32.5 RDW 14.3 Plt Count 277 MPV 9.5 Neut # (Auto) 7.1 H Lymph # (Auto) 2.2 [place] # (Auto) 0.7 Eos # (Auto) 0.0 Baso # (Auto) 0.0 Absolute Nucleated RBC 0.00 Nucleated RBC % 0.0 PT 11.3 INR 1.0 Sodium 140 Potassium 3.6 Chloride 103 Carbon Dioxide 26 Anion Gap 11.0 BUN 17 Creatinine 0.7 Estimated GFR (MDRD) 95 Glucose 138 H Calcium 9.3 Total Bilirubin 0.8 AST 14 ALT < 10 L Alkaline Phosphatase 25 L Total Creatine Kinase 36 CK-MB (CK-2) Troponin I Total Protein 7.1 Albumin 3.7 Globulin 3.4 Albumin/Globulin Ratio 1.1 Lipase 33 01/08/19 19:06 WBC RBC Hgb Hct MCV MCH MCHC RDW Plt Count MPV Neut # (Auto) Lymph # (Auto) [place] # (Auto) Eos # (Auto) Baso # (Auto) Absolute Nucleated RBC Nucleated RBC % PT INR Sodium Potassium Chloride Carbon Dioxide Anion Gap BUN Creatinine Estimated GFR (MDRD) Glucose Calcium Total Bilirubin AST ALT Alkaline Phosphatase Total Creatine Kinase CK-MB (CK-2) 0.3 L Troponin I < 0.04 Total Protein Albumin Globulin Albumin/Globulin Ratio Lipase - Rads (name of study) CT PA Chest Radiology: EMP read contemporaneously (NAD) PD MEDICAL DECISION MAKING - ED course ED course: 38-year-old woman with pleuritic chest pain of 2 days duration. EKG and biomarkers are negative except for tachycardia. The tachycardia is somewhat of a chronic issue for her per her but obviously given the circumstances PE work-up was necessary and undertaken with negative CT pulmonary angiogram. By diagnosi s of exclusion pleurisy is likely. Departure - Departure Disposition: 01 Home, Self Care Clinical Impression: Chest pain, Sinus tachycardia Condition: Good Record reviewed to determine appropriate education?: Yes Health Concerns: Chest pain, also tachycardia but that may be a chronic issue. Plan of Treatment: CT angiogram of the chest ruled out pulmonary embolism or pneumonia. Her cardiac enzymes and EKG were normal except for tachycardia but that may be a chronic issue. Assessment: Suspected pleurisy, ibuprofen as needed for the pain. Instructions: ED Chest Pain Pleurisy Comments: Take ibuprofen as needed for the pain, should go away in days to a week. Return for new worsening symptoms. Follow-up with your doctor, next available appointment. Discharge Date/Time: 01/08/19 20:25
[2019-01-08 19:17] LABS: BASOPHILS % (AUTO) 0.4 %; EOSINOPHILS % (AUTO) 0.3 %; HGB - HEMOGLOBIN 14.1 g/dL (12.0-16.0); LYMPHOCYTES # (AUTO) 2.2 10^3/uL (1.5-3.5); LYMPHOCYTES % (AUTO) 21.9 %; MEAN CORPUSCULAR HEMOGLOBIN 28.4 pg (27.0-31.0); MEAN CORPUSCULAR HGB CONC 32.5 g/dL (32.0-36.0); MEAN CORPUSCULAR VOLUME 87.3 fL (81.0-99.0); MEAN PLATELET VOLUME 9.5 fL (7.9-10.8); MONOCYTES # (AUTO) 0.7 10^3/uL (0.0-1.0); NEUTROPHILS # (AUTO) 7.1 10^3/uL (1.5-6.6); PLT - PLATELET COUNT 277 10^3/uL (130-450); RED BLOOD COUNT 4.97 10^6/uL (4.20-5.40); RED CELL DISTRIBUTION WIDTH 14.3 % (12.0-15.0); WHITE BLOOD COUNT 10.1 x10^3/uL (4.8-10.8)
[2019-01-08] MEDS ORDERED: IOVERSOL 320 100 ML VIAL IVP ONE ×2 (19:25→19:36)
[2019-01-08 19:32] LABS: ALBUMIN 3.7 g/dL (3.2-5.5); ALBUMIN/GLOBULIN RATIO 1.1 (1.0-2.2); ALKALINE PHOSPHATASE 25 IU/L (42-121); ALT ALANINE AMINOTRANSFERASE < 10 IU/L (10-60); AST ASPARTATE AMINOTRANSFERASE 14 IU/L (10-42); BILIRUBIN,TOTAL 0.8 mg/dL (0.2-1.0); BUN - BLOOD UREA NITROGEN 17 mg/dL (6-20); CALCIUM 9.3 mg/dL (8.5-10.3); CARBON DIOXIDE - CO2 26 mmol/L (21-32); CHLORIDE 103 mmol/L (101-111); CK- CREATINE KINASE 36 IU/L (22-269); CREATININE 0.7 mg/dL (0.4-1.0); GFR - MDRD 95 (>89); GLUCOSE 138 mg/dL (70-100); LIPASE 33 U/L (22-51); SODIUM 140 mmol/L (135-145); TOTAL PROTEIN 7.1 g/dL (6.7-8.2)
[2019-01-08 19:36] LABS: TROPONIN I < 0.04 ng/mL (<0.49)
[2019-01-08 19:38] LABS: CREATINE KINASE MB 0.3 ng/mL (0.6-6.3); PT - PROTHROMBIN TIME 11.3 secs (9.9-12.6)
--- NOTE | 2019-01-08 20:11 | CT Report ---
Reason: PE protocol CP/dyspnea Procedure Date: 01/08/2019 Accession Number: [id number] / [id number] Procedure: CT - ANGIO CHEST W/WO CPT Code: FULL RESULT: EXAM: CT ANGIOGRAM CHEST EXAM DATE: 01/08/2019 07:34 PM. CLINICAL HISTORY: PE protocol CP/dyspnea. COMPARISON: None. TECHNIQUE: Routine helical imaging was performed through the chest in the pulmonary arterial phase. IV Contrast: 80 cc Optiray 320. Reconstructions: Coronal 3-D MIP reconstructions.Sagittal and coronal. In accordance with CT protocol optimization, one or more of the following dose reduction techniques were utilized for this exam: automated exposure control, adjustment of mA and/or KV based on patient size, or use of iterative reconstructive technique. FINDINGS: Pulmonary Arteries: Diagnostic quality: Adequate through the segmental arteries. No evidence for acute or chronic pulmonary emboli. Lungs/Pleura: No suspicious nodularity, mass, or consolidation. No pleural effusions. No endobronchial or endotracheal lesion. Mediastinum: Imaged portions of the thyroid are grossly unremarkable. Thoracic aorta and main pulmonary artery are normal caliber. No aortic dissection. Heart size is within normal limits. No pericardial effusion. Lymph Nodes: No mediastinal, hilar, or axillary adenopathy. Bones: No suspicious osseous lesions. Visualized chest wall is grossly unremarkable. Partially Imaged Upper Abdomen: No acute abnormalities. IMPRESSION: No acute or chronic pulmonary embolus. RADIA
[2019-01-08 20:24] VITALS: BP 95/72
== END 2019-01-08 20:25 | disposition home or self-care (01) ==
LOC: ED 18:42
DX: R07.81 Pleurodynia (principal); R00.0 Tachycardia, unspecified; F17.200 Nicotine dependence, unspecified, uncomplicated
CPT/HCPCS: 71275; 80053; 82550; 82553; 83690; 84484; 85025; 85610; 93005; 99283; 99284; A9270; Q9967

== ENCOUNTER 2019-03-23 15:34 | Emergency (ER) | payer OTHER ==
[2019-03-23] MEDS ORDERED: BUPIVACAINE 0.5%-EPI 1:200000 PF 10 ML VIAL SUBQ STA (15:49)
--- NOTE | 2019-03-23 15:50 | ED Physician Documentation ---
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 Psych: Depression, Anxiety, Panic attacks - Past Surgical History 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 - Present Medications Home Medications: Ambulatory Orders Medication Instructions Recorded Confirmed Citalopram [CeleXA] 30 mg PO DAILY 11/04/17 11/04/17 Divalproex Sodium [Divalproex 500 mg PO QPM 11/04/17 11/04/17 Sodium ER] LORazepam [Ativan] 0.5 mg PO HS 11/04/17 11/04/17 Quetiapine Fumarate 300 mg PO QPM 11/04/17 11/04/17 Quetiapine Fumarate [Quetiapine 300 mg PO QPM 11/04/17 11/04/17 Fumarate ER] Ondansetron Odt [Zofran] 4 mg TL Q6H PRN #14 tablet 01/10/18 Meclizine [Antivert] 25 mg PO Q6H PRN #20 tablet 04/10/18 dexAMETHasone [Decadron] 4 mg PO DAILY #5 tablet 04/10/18 Clindamycin HCl [Clindamycin 300MG 300 mg PO Q6H #28 capsule 03/23/19 CAP] Hydrocodone/Acetaminophen 1 - 2 each PO Q6H PRN #14 tablet 03/23/19 [Hydrocodon-Acetaminophen 5-325] Ibuprofen [Motrin] 800 mg PO Q8H PRN #30 tablet 03/23/19 - Allergies Allergies/Adverse Reactions: Allergies Allergy/AdvReac Type Severity Reaction Status Date / Time Penicillins AdvReac Hives Verified 07/18/18 13:02 - Social History Does the pt smoke?: Yes Smoking Status: Current every day smoker Does the pt drink ETOH?: No Does the pt have substance abuse?: No - Immunizations Immunizations are current?: Yes - POLST Patient has POLST: No PD ED PE NORMAL - Vitals Vital signs reviewed: Yes - General General: Alert and oriented X 3, No acute distress - HEENT HEENT: Other (Right mandibular premolar with a posterior cavity, some tenderness. No sublingual edema or gingival edema. No trismus.) - Neck Neck: Supple, no meningeal sign, No bony TTP - Neuro Neuro: Alert and oriented X 3, Normal speech Results - Vitals Vitals: Vital Signs - 24 hr 03/23/19 15:52 Temperature 36.6 C Heart Rate 91 Respiratory 18 Rate Blood Pressure 130/92 H O2 Saturation 100 Oxygen O2 Source Room air Procedures - General procedure General procedure: Inferior alveolar block was done and then a temporary filling was placed. She was pain-free after the block. - Regional nerve block Nerve block site: Inferior alveolar Right / left: Right Nerve block anesthesia: Marcaine 0.5% Nerve block aftercare: Excellent anesthesia Departure - Departure Disposition: Home, Self Care Clinical Impression: Pain due to dental caries Condition: Good Record reviewed to determine appropriate education?: Yes Instructions: ED Tooth Pain Prescriptions: Clindamycin HCl [Clindamycin 300MG CAP] 300 mg PO Q6H #28 capsule Hydrocodone/Acetaminophen [Hydrocodon-Acetaminophen 5-325] 1 - 2 each PO Q6H PRN #14 tablet PRN Reason: pain Ibuprofen [Motrin] 800 mg PO Q8H PRN #30 tablet PRN Reason: PAIN &/OR FEVER Comments: Follow-up with your dentist on Monday, return for new or worsening symptoms.
[2019-03-23 15:54] VITALS: BP 130/92
== END 2019-03-23 16:27 | disposition home or self-care (01) ==
LOC: ED 15:34
DX: K02.9 Dental caries, unspecified (principal); K08.89 Other specified disorders of teeth and supporting structures; F17.200 Nicotine dependence, unspecified, uncomplicated
CPT/HCPCS: 64400

== ENCOUNTER 2019-08-25 10:21 | Emergency (ER) | payer OTHER ==
[2019-08-25 10:29] VITALS: BP 117/87
[2019-08-25] MEDS ORDERED: IBUPROFEN 600 MG TABLET PO STA (10:42)
--- NOTE | 2019-08-25 10:47 | ED Physician Documentation ---
PD HPI LOWER EXT INJURY - Stated complaint Stated Complaint: L FOOT PX - Chief complaint Chief Complaint: Ext Problem - History obtained from History obtained from: Patient - History of Present Illness PD HPI LOW EXT INJURY LOCATION: Left, Foot Type of injury: Fall, Twist Where injury occurred: Home Timing - onset: Yesterday Timing - duration: Hours (14) Timing - details: Abrupt onset Pain level now: 0 Improved by: Rest Worsened by: Other (Weightbearing) Associated symptoms: No: Numbness, Tingling, Swelling, Discolored Recently seen: Not recently seen - Additional information Additional information: There is a 39-year-old woman who was walking in her kitchen last night When she slipped in a small puddle on the kitchen floor. As she went down her left foot caught on the island and was pulled and twisted behind her and she ended up landing directly on the foot. Last night she iced it and took 2 Tylenol and went to bed was not all that significantly painful but this morning when she went to put weight on it she could not bear any weight. She denies any numbness or tingling down into her toes and at this point sitting here not putting weight on it she has no pain. 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 Review of Systems Musculoskeletal: reports: Extremity pain (Left foot. 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 - Present Medications Home Medications: Ambulatory Orders Medication Instructions Recorded Confirmed Citalopram [CeleXA] 30 mg PO DAILY 11/04/17 11/04/17 Divalproex Sodium [Divalproex 500 mg PO QPM 11/04/17 11/04/17 Sodium ER] LORazepam [Ativan] 0.5 mg PO HS 11/04/17 11/04/17 Quetiapine Fumarate 300 mg PO QPM 11/04/17 11/04/17 Quetiapine Fumarate [Quetiapine 300 mg PO QPM 11/04/17 11/04/17 Fumarate ER] - Allergies Allergies/Adverse Reactions: Allergies Allergy/AdvReac Type Severity Reaction Status Date / Time Penicillins AdvReac Hives Verified 08/25/19 10:29 - Social History Does the pt smoke?: Yes Smoking Status: Current every day smoker Does the pt drink ETOH?: No Does the pt have substance abuse?: No - Immunizations Immunizations are current?: Yes - POLST Patient has POLST: No PD ED PE NORMAL - Vitals Vital signs reviewed: Yes - General General: Alert and oriented X 3, No acute distress, Well developed/nourished - Derm Derm: Normal color, Warm and dry, Other (No bruising noted to the foot.) - Extremities Extremities: No tenderness to palpate, Other (The left foot has a 2+ dorsalis pedis pulse. She is able to wiggle her toes and sensation is intact to light touch. There is no significant swelling to the foot and no obvious bruising. She has no tenderness with palpation along the tarsometatarsal joint or down the individual metatarsals.) - Neuro Neuro: Alert and oriented X 3, No motor deficit, No sensory deficit - Psych Psych: Normal mood, Normal affect Results - Vitals Vitals: Vital Signs - 24 hr 08/25/19 10:27 Temperature 36.5 C Heart Rate 116 H Respiratory 20 Rate Blood Pressure 117/87 H O2 Saturation 98 Oxygen O2 Source Room air - Rads (name of study) L foot Radiology: EMP read contemporaneously (neg fracture), See rad report PD MEDICAL DECISION MAKING - ED course Complexity details: reviewed results, d/w patient ED course: There is no evident fracture on the imaging. I did did more specific testing to see if there was any laxity at the tarsometatarsal joint and the foot was very stable and she did not appear to have significant pain with that testing or with ankle extension or plantar flexion.She is placed in a postop shoe for comfort. She is given a note to be off work today. She can ice and elevate the foot at home and continue with ibuprofen at 3 to 4 tablets every 8 hours with food. [place] Departure - Departure Disposition: 01 Home, Self Care Clinical Impression: Sprain of foot, left Qualifiers: Encounter type: initial encounter Qualified Code(s): S93.602A - Unspecified sprain of left foot, initial encounter Condition: Good Instructions: ED Sprain Foot Follow-Up: ANJELICA Perera [Provider Group] Comments: Wear the postop shoe for comfort. If you are still not able to bear weight because of pain you can use crutches. Ice and elevate the foot through the day today. Take ibuprofen 3 to 4 tablets every 8 hours with food as needed for pain. [place] Forms: Activity restrictions
--- NOTE | 2019-08-25 11:21 | XRAY Report ---
Reason: Trauma, unable to bear weight Procedure Date: 08/25/2019 Accession Number: [id number] / [id number] Procedure: XR - Foot 3 View LT CPT Code: Final Report FULL RESULT: EXAM: LEFT FOOT RADIOGRAPHY EXAM DATE: 08/25/2019 10:49 AM. CLINICAL HISTORY: Left foot pain. COMPARISON: None. TECHNIQUE: 3 views. FINDINGS: Bones: Minor calcaneal spurring is seen. No fracture or bone lesion is identified. Joints: Normal. No subluxations. Soft Tissues: Normal. No soft tissue swelling. IMPRESSION: No acute findings. RADIA
== END 2019-08-25 11:45 | disposition home or self-care (01) ==
LOC: ED 10:21
DX: S93.602A Unspecified sprain of left foot, initial encounter (principal); W01.0XXA Fall on same level from slipping, tripping and stumbling without subsequent striking against object, initial encounter; Y93.01 Activity, walking, marching and hiking; Y92.000 Kitchen of unspecified non-institutional (private) residence as the place of occurrence of the external cause; F17.200 Nicotine dependence, unspecified, uncomplicated
CPT/HCPCS: 73630; 99283; 99284; A9270

== ENCOUNTER 2019-10-15 23:54 | Outpatient (CLI) | payer OTHER | END 2019-10-15 23:55 | disposition critical access hospital (66) | LOC: EMS 23:54 | PROVIDERS: ATTEND Surgery | DX: R42 Dizziness and giddiness (principal); R07.89 Other chest pain; R06.02 Shortness of breath | CPT/HCPCS: A0425; A0429 ==

== ENCOUNTER 2019-10-16 00:10 | Emergency (ER) | payer OTHER ==
--- NOTE | 2019-10-16 00:17 | ED Physician Documentation ---
History of Present Illness - Stated complaint Stated Complaint: ANXIETY ATTK - History obtained from History obtained from: Patient - History of Present Illness Timing: How many weeks ago (3-4) Pain level max: 0 Pain level now: 0 Improved by: nothing Worsened by: no exacerbating factors - Additonal information Additional information: brought in by ambulance. Patient states my heart feels weird and my breathing feels not normal. Arelis been sick for a month. Patient was evaluated by her primary doctor on September 13, had negative flu swab, was prescribed an MDI and Mucinex. She contacted her doctor again today because she has not felt any better, and a prescription for doxycycline was called into the pharmacy. She has fill this prescription but has not yet started the antibiotic. Review of Systems Constitutional: reports: Chills, Myalgias, Fatigue. denies: Fever Cardiac: reports: Reviewed and negative Respiratory: reports: Cough. 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 Psych: Depression, Anxiety, Panic attacks - Past Surgical History Past Surgical History: Yes /TRAINING AND DEVELOPMENT PROFESSIONAL: Breast reduction - Present Medications Home Medications: Ambulatory Orders Medication Instructions Recorded Confirmed Citalopram [CeleXA] 30 mg PO DAILY 11/04/17 11/04/17 Divalproex Sodium [Divalproex 500 mg PO QPM 11/04/17 11/04/17 Sodium ER] LORazepam [Ativan] 0.5 mg PO HS 11/04/17 11/04/17 Quetiapine Fumarate 300 mg PO QPM 11/04/17 11/04/17 Quetiapine Fumarate [Quetiapine 300 mg PO QPM 11/04/17 11/04/17 Fumarate ER] - Allergies Allergies/Adverse Reactions: Allergies Allergy/AdvReac Type Severity Reaction Status Date / Time Penicillins AdvReac Hives Verified 10/16/19 00:18 - Social History Does the pt smoke?: Yes Smoking Status: Current every day smoker Does the pt drink ETOH?: No Does the pt have substance abuse?: No - Immunizations Immunizations are current?: Yes - POLST Patient has POLST: No PD ED PE NORMAL - Vitals Vital signs reviewed: Yes - General General: Alert and oriented X 3, No acute distress, Well developed/nourished - HEENT HEENT: Moist mucous membranes, Pharynx benign - Neck Neck: Supple, no meningeal sign - Cardiac Cardiac: RRR, No murmur - Respiratory Respiratory: No respiratory distress - Abdomen Abdomen: Normal bowel sounds Results - Vitals Vitals: Oxygen O2 Source Room air - EKG (time done) No standard instances Rate: Rate (enter#) (103) Rhythm: Sinus tachycardia [place]: Normal Intervals: Normal [place] QRS: Normal Ischemia: Normal ST segments - Labs Labs: Laboratory Tests 10/16/19 10/16/19 01:15 01:15 WBC 12.4 H RBC 4.38 Hgb 13.2 Hct 38.9 MCV 88.8 MCH 30.1 MCHC 33.9 RDW 12.9 Plt Count 248 MPV 9.5 Neut # (Auto) 9.7 H Lymph # (Auto) 1.5 [place] # (Auto) 1.1 H Eos # (Auto) 0.0 Baso # (Auto) 0.1 Absolute Nucleated RBC 0.00 Nucleated RBC % 0.0 Sodium 138 Potassium 3.4 L Chloride 105 Carbon Dioxide 25 Anion Gap 8.0 BUN 24 H Creatinine 0.8 Estimated GFR (MDRD) 81 L Glucose 111 H Calcium 9.1 - Rads (name of study) cxr Radiology: Prelim report reviewed, See rad report PD MEDICAL DECISION MAKING - ED course Complexity details: reviewed results, re-evaluated patient, considered differential, d/w patient ED course: on reevaluation, patient is asleep, easily awoken to gentle verbal stimulus. She reports feeling better. Results of lab tests, chest x-ray, and EKG were reviewed with the patient. Her kidney test suggest some mild dehydration, and thats a liter of fluid was given prior to discharge. I encouraged her to take the antibiotic as prescribed. Departure - Departure Disposition: 01 Home, Self Care Clinical Impression: Bronchitis Condition: Good Instructions: ED Upper Resp Infec Abx Tx Follow-Up: DEMETRIO ROBERTS MD [Primary Care Provider] - Comments: Take the antibiotic as prescribed by your doctor Discharge Date/Time: 10/16/19 03:26
--- NOTE | 2019-10-16 01:20 | XRAY Report ---
Reason: cough, dyspnea Procedure Date: 10/16/2019 Accession Number: [id number] / [id number] Procedure: XR - Chest 2 View X-Ray CPT Code: 50732 Final Report FULL RESULT: EXAM: CHEST RADIOGRAPHY EXAM DATE: 10/16/2019 01:09 AM. CLINICAL HISTORY: Cough, dyspnea. COMPARISON: None. TECHNIQUE: 2 views. FINDINGS: Minimal peribronchial thickening is seen in the infrahilar lungs. There is no focal consolidation, pleural effusion, or pneumothorax. No acute osseous abnormality is seen. The mediastinal and cardiac silhouettes are normal. IMPRESSION: Minimal infrahilar peribronchial thickening without focal consolidation. RADIA
[2019-10-16 01:21] LABS: BASOPHILS # (AUTO) 0.1 10^3/uL (0.0-0.1); BASOPHILS % (AUTO) 0.5 %; EOSINOPHILS % (AUTO) 0.3 %; HGB - HEMOGLOBIN 13.2 g/dL (12.0-16.0); LYMPHOCYTES # (AUTO) 1.5 10^3/uL (1.5-3.5); MEAN CORPUSCULAR HEMOGLOBIN 30.1 pg (27.0-31.0); MEAN CORPUSCULAR HGB CONC 33.9 g/dL (32.0-36.0); MEAN CORPUSCULAR VOLUME 88.8 fL (81.0-99.0); MEAN PLATELET VOLUME 9.5 fL (7.9-10.8); MONOCYTES # (AUTO) 1.1 10^3/uL (0.0-1.0); MONOCYTES % (AUTO) 8.9 %; NEUTROPHILS # (AUTO) 9.7 10^3/uL (1.5-6.6); NEUTROPHILS % (AUTO) 77.8 %; PLT - PLATELET COUNT 248 10^3/uL (130-450); RED BLOOD COUNT 4.38 10^6/uL (4.20-5.40); RED CELL DISTRIBUTION WIDTH 12.9 % (12.0-15.0); WHITE BLOOD COUNT 12.4 x10^3/uL (4.8-10.8)
[2019-10-16 01:30] LABS: CALCIUM 9.1 mg/dL (8.5-10.3); CREATININE 0.8 mg/dL (0.4-1.0)
[2019-10-16] MEDS ORDERED: SODIUM CHLORIDE 0.9% 1,000 ML IV STA (02:08)
[2019-10-16 03:17] VITALS: BP 115/64
== END 2019-10-16 03:26 | disposition home or self-care (01) ==
LOC: EDUNIT# → ED 00:10
DX: J40 Bronchitis, not specified as acute or chronic (principal); F17.200 Nicotine dependence, unspecified, uncomplicated
CPT/HCPCS: 36415; 71046; 80048; 85025; 93005; 96360; 99284

== ENCOUNTER 2019-10-25 18:34 | Emergency (ER) | payer OTHER ==
--- NOTE | 2019-10-25 19:23 | ED Physician Documentation ---
History of Present Illness - Stated complaint Stated Complaint: RT LEG PX - Chief complaint Chief Complaint: Ext Problem - History obtained from History obtained from: Patient (the patient is a 39 y/o f who p/w a cc of "i want to make sure that i dont have a blood clot". she states she called her pcp several times and eventually presents to the ed. she denies any hx of dvt/pe, syncope, hemoptysis, exogenous estrogen use or recent surgeries. she denies any recent trauma.) Review of Systems Constitutional: reports: Reviewed and negative Eyes: reports: Reviewed and negative Ears: reports: Reviewed and negative Nose: reports: Reviewed and negative Throat: reports: Reviewed and negative Cardiac: reports: Reviewed and negative Respiratory: reports: Reviewed and negative GI: reports: Reviewed and negative : reports: Reviewed and negative Skin: reports: Reviewed and negative Musculoskeletal: reports: Other (right leg pain) Neurologic: reports: Reviewed and negative Psychiatric: reports: Reviewed and negative Endocrine: reports: Reviewed and negative Immunocompromised: reports: Reviewed and negative PD PAST MEDICAL HISTORY - Past Medical History Cardiovascular: None Respiratory: None Endocrine/Autoimmune: None 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 Psych: Depression, Anxiety, Panic attacks - Past Surgical History Past Surgical History: Yes /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: Breast 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 - Present Medications Home Medications: Ambulatory Orders Medication Instructions Recorded Confirmed Citalopram [CeleXA] 30 mg PO DAILY 11/04/17 11/04/17 Divalproex Sodium [Divalproex 500 mg PO QPM 11/04/17 11/04/17 Sodium ER] LORazepam [Ativan] 0.5 mg PO HS 11/04/17 11/04/17 Quetiapine Fumarate 300 mg PO QPM 11/04/17 11/04/17 Quetiapine Fumarate [Quetiapine 300 mg PO QPM 11/04/17 11/04/17 Fumarate ER] - Allergies Allergies/Adverse Reactions: Allergies Allergy/AdvReac Type Severity Reaction Status Date / Time Penicillins AdvReac Hives Verified 10/25/19 18:48 - Social History Does the pt smoke?: Yes Smoking Status: Current every day smoker Does the pt drink ETOH?: No Does the pt have substance abuse?: No - Immunizations Immunizations are current?: Yes - POLST Patient has POLST: No PD ED PE NORMAL - Vitals Vital signs reviewed: Yes - General General: Alert and oriented X 3, No acute distress, Well developed/nourished - HEENT HEENT: Atraumatic, PERRL, Moist mucous membranes, Pharynx benign - Neck Neck: Supple, no meningeal sign, No JVD - Cardiac Cardiac: RRR, No murmur, Strong equal pulses - Respiratory Respiratory: No respiratory distress, Clear bilaterally - Abdomen Abdomen: Normal bowel sounds, Soft, Non tender, Non distended, No organomegaly - Derm Derm: Normal color, Warm and dry, No rash - Extremities Extremities: No deformity, No tenderness to palpate, Normal ROM s pain, No edema, No calf tenderness / cord, Other (there is some mild ttp to the right calf area, no gross swelling, no edema, no cyanosis, compartments soft, nv intact, palpable dp/pt pulses, normal gait, no asymettry. ) - Neuro Neuro: Alert and oriented X 3 - Psych Psych: Normal mood, Normal affect Results - Vitals Vitals: Vital Signs - 24 hr 10/25/19 10/25/19 18:44 21:19 Temperature 36.4 C L Heart Rate 122 H 87 Respiratory 18 16 Rate Blood Pressure 124/86 H 125/75 O2 Saturation 96 97 Oxygen O2 Source Room air PD MEDICAL DECISION MAKING - ED course Complexity details: considered differential (will order us to look for dvt.) Departure - Departure Disposition: 01 Home, Self Care Clinical Impression: Pain of lower extremity Qualifiers: Laterality: right Qualified Code(s): M79.604 - Pain in right leg Condition: Stable Instructions: ED Contusion Lower Ext Follow-Up: DEMETRIO ROBERTS MD [Primary Care Provider] - Tomorrow
[2019-10-25 21:19] VITALS: BP 125/75
--- NOTE | 2019-10-25 21:24 | Ultrasound Report ---
Reason: dvt Procedure Date: 10/25/2019 Accession Number: [id number] / [id number] Procedure: US - Duplex Ext Veins Right CPT Code: Final Report FULL RESULT: EXAM: RIGHT LOWER EXTREMITY VENOUS ULTRASOUND EXAM DATE: 10/25/2019 08:44 PM. CLINICAL HISTORY: Dvt. COMPARISON: None. TECHNIQUE: Real-time sonographic vascular imaging was performed by the roustabout pusher through the lower extremity utilizing both color-flow and Doppler spectral analysis. Multiple patient care representative static images were saved for review. FINDINGS: Common Femoral Vein (CFV): Normal. CFV-GSV Junction: Normal. Profunda Femoral Vein (PFV): Normal. Femoral Vein (FV) Prox: Normal. Femoral Vein (FV) Mid: Normal. Femoral Vein (FV) Dist: Normal. Popliteal Vein: Normal. Posterior Tibial Veins: Normal. Peroneal Veins: Limited visualization, the visualized portions Contralateral Side CFV: Normal. Other: None. IMPRESSION: No evidence for deep venous thrombosis in the visualized right lower extremity. RADIA
== END 2019-10-25 21:33 | disposition home or self-care (01) ==
LOC: ED 18:34
DX: M79.604 Pain in right leg (principal); F17.200 Nicotine dependence, unspecified, uncomplicated
CPT/HCPCS: 99283; 99284

== ENCOUNTER 2019-11-03 19:56 | Emergency (ER) | payer OTHER ==
[2019-11-03 20:09] VITALS: BP 99/76
[2019-11-03] MEDS ORDERED: predniSONE 20 MG TABLET PO STA (20:24)
[2019-11-03] MEDS ORDERED: BENZONATATE 100 MG CAPSULE PO STA (20:24)
--- NOTE | 2019-11-03 20:26 | ED Physician Documentation ---
PD HPI DYSPNEA - Stated complaint Stated Complaint: LIGHTHEADED/COUGH/CP - Chief complaint Chief Complaint: Resp - History obtained from History obtained from: Patient (This is a 39-year-old woman with history of tobacco abuse who for the last month and a half has had a minimally productive cough. It got briefly Better after course of antibiotics and albuterol. She is not been on steroids. Now she has burning pain when she coughs and some back tightness when she coughs. She is mildly short of breath. Denies fevers or chills but had sweats last night. She had negative coronavirus testing 2 weeks ago.) - Additional information Additional information: She had an x-ray done on the first of this month showing peribronchial thickening without pneumonia. She was back at work today and her boss made her leave because she was coughing. She needs a note to return to work. Review of Systems Constitutional: reports: Fatigue, Sweats. denies: Fever, Chills Nose: denies: Rhinorrhea / runny nose Throat: denies: Sore throat Cardiac: reports: Chest pain / pressure. denies: Palpitations Respiratory: reports: Cough. 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 Psych: Depression, Anxiety, Panic attacks - Past Surgical History Past Surgical History: Yes /RN REFERRAL: Breast reduction - Present Medications Home Medications: Ambulatory Orders Medication Instructions Recorded Confirmed Citalopram [CeleXA] 30 mg PO DAILY 11/04/17 11/04/17 Divalproex Sodium [Divalproex 500 mg PO QPM 11/04/17 11/04/17 Sodium ER] LORazepam [Ativan] 0.5 mg PO HS 11/04/17 11/04/17 Quetiapine Fumarate 300 mg PO QPM 11/04/17 11/04/17 Quetiapine Fumarate [Quetiapine 300 mg PO QPM 11/04/17 11/04/17 Fumarate ER] Benzonatate [Tessalon Perle] 100 - 200 mg PO TID PRN #30 capsule 11/03/19 predniSONE [Deltasone] 20 mg PO [id number] #21 tab 11/03/19 - Allergies Allergies/Adverse Reactions: Allergies Allergy/AdvReac Type Severity Reaction Status Date / Time Penicillins AdvReac Hives Verified 10/25/19 18:48 - Social History Does the pt smoke?: Yes Smoking Status: Current every day smoker Does the pt drink ETOH?: No Does the pt have substance abuse?: No - Immunizations Immunizations are current?: Yes - POLST Patient has POLST: No PD ED PE NORMAL - Vitals Vital signs reviewed: Yes - General General: Alert and oriented X 3, Other (Frequent bronchitic coughing) - HEENT HEENT: Pharynx benign - Neck Neck: Supple, no meningeal sign, No bony TTP - Cardiac Cardiac: RRR, No murmur - Respiratory Respiratory: No respiratory distress, Clear bilaterally, Other (Mildly dimini shed throughout without focal findings) - Abdomen Abdomen: Non tender - Back Back: No CVA TTP, No spinal TTP - Derm Derm: Normal color, Warm and dry - Extremities Extremities: No edema, No calf tenderness / cord - Neuro Neuro: Alert and oriented X 3, Normal speech Results - Vitals Vitals: Vital Signs - 24 hr 11/03/19 20:05 Temperature 36.3 C L Heart Rate 100 Respiratory 18 Rate Blood Pressure 99/76 O2 Saturation 97 Oxygen O2 Source Room air - Labs Labs: Laboratory Tests 11/03/19 20:40 Urine Color YELLOW Urine Clarity CLEAR Urine pH 8.0 H Ur Specific [place] 1.015 Urine Protein NEGATIVE Urine Glucose (UA) NEGATIVE Urine Ketones TRACE Urine Occult Blood NEGATIVE Urine Nitrite NEGATIVE Urine Bilirubin NEGATIVE Urine Urobilinogen 0.2 (NORMAL) Ur Leukocyte Esterase NEGATIVE Ur Microscopic Review NOT INDICATED Urine Culture Comments NOT INDICATED Urine HCG, Qual NEGATIVE - Rads (name of study) 1v chest Radiology: EMP read contemporaneously (NAD) PD MEDICAL DECISION MAKING - ED course ED course: 39-year-old woman with persistent bronchitis for several months in the setting of underlying tobacco abuse. Has failed antibiotics. Vital signs are unremarkable and chest x-ray is negative. She has not been on steroids and will start those as well as Tessalon. Departure - Departure Disposition: 01 Home, Self Care Clinical Impression: Bronchitis Condition: Good Record reviewed to determine appropriate education?: Yes Instructions: ED Bronchitis Asthmatic Prescriptions: Benzonatate [Tessalon Perle] 100 - 200 mg PO TID PRN #30 capsule PRN Reason: Cough predniSONE [Deltasone] 20 mg PO [id number] #21 tab Comments: Return for new or worsening symptoms. Follow-up with your doctor within the week for recheck. Forms: Activity restrictions
--- NOTE | 2019-11-03 20:46 | XRAY Report ---
Reason: cough Procedure Date: 11/03/2019 Accession Number: [id number] / [id number] Procedure: XR - Chest 1 View X-Ray CPT Code: 56234 Final Report FULL RESULT: EXAM: CHEST RADIOGRAPHY EXAM DATE: 11/03/2019 08:20 PM. CLINICAL HISTORY: Cough. COMPARISON: CHEST 2 VIEW 10/16/2019 12:58 AM. TECHNIQUE: 1 view. FINDINGS: Lungs/Pleura: No dense consolidation. No large effusion or pneumothorax. No pulmonary edema. Mediastinum: Heart and mediastinal contours are unremarkable. Other: None. IMPRESSION: No acute radiographic pulmonary abnormalities. RADIA
[2019-11-03 20:51] LABS: BILIRUBIN,URINE NEGATIVE (NEGATIVE); GLUCOSE, URINE (UA) NEGATIVE (NEGATIVE); KETONES,URINE (UA) TRACE mg/dL (NEGATIVE); LEUKOCYTE ESTERASE, URINE NEGATIVE (NEGATIVE); NITRITE,URINE NEGATIVE (NEGATIVE); OCCULT BLOOD,URINE NEGATIVE (NEGATIVE); PROTEIN,URINE NEGATIVE (NEGATIVE); UROBILINOGEN,URINE 0.2 (NORMAL) E.U./dL (NORMAL)
[2019-11-03 20:54] LABS: CLARITY,URINE CLEAR (CLEAR); HCG UR QUAL NEGATIVE
== END 2019-11-03 21:13 | disposition home or self-care (01) ==
LOC: ED 19:56
DX: J40 Bronchitis, not specified as acute or chronic (principal); F17.200 Nicotine dependence, unspecified, uncomplicated; F32.9 Major depressive disorder, single episode, unspecified; F41.9 Anxiety disorder, unspecified
CPT/HCPCS: 71045; 81003; 81025; 87635; 99283; 99284; A9270; J7512; 81001; 81599; 87086

== ENCOUNTER 2019-11-13 00:13 | Outpatient (CLI) | payer OTHER | END 2019-11-13 00:14 | disposition critical access hospital (66) | LOC: EMS 00:13 | PROVIDERS: ATTEND Surgery | DX: R07.89 Other chest pain (principal); R42 Dizziness and giddiness; F41.9 Anxiety disorder, unspecified | CPT/HCPCS: A0425; A0429 ==

== ENCOUNTER 2019-11-13 00:24 | Emergency (ER) | payer OTHER ==
--- NOTE | 2019-11-13 00:18 | ED Physician Documentation ---
History of Present Illness - Stated complaint Stated Complaint: ANXIETY ATTACK - History obtained from History obtained from: Patient (The patient is a 39-year-old female who presents via EMS with a chief complaint of a panic attack.The patient reports that her cat recently and she became very stressed and started hyperventilating then called 911. The patient denies chest pain or syncope, fevers, headaches, neck pain she denies any auditory or visual hallucinations and denies any homicidal or suicidal thoughts.) Review of Systems Constitutional: reports: Reviewed and negative Eyes: reports: Reviewed and negative Ears: reports: Reviewed and negative Nose: reports: Reviewed and negative Throat: reports: Reviewed and negative Cardiac: reports: Reviewed and negative Respiratory: reports: Reviewed and negative GI: reports: Reviewed and negative : reports: Reviewed and negative Skin: reports: Reviewed and negative Musculoskeletal: reports: Reviewed and negative Neurologic: reports: Reviewed and negative Psychiatric: reports: Anxiety Endocrine: reports: Reviewed and negative Immunocompromised: reports: Reviewed and negative PD PAST MEDICAL HISTORY - Present Medications Home Medications: Ambulatory Orders Medication Instructions Recorded Confirmed Citalopram [CeleXA] 30 mg PO DAILY 11/04/17 11/04/17 Divalproex Sodium [Divalproex 500 mg PO QPM 11/04/17 11/04/17 Sodium ER] LORazepam [Ativan] 0.5 mg PO HS 11/04/17 11/04/17 Quetiapine Fumarate 300 mg PO QPM 11/04/17 11/04/17 Quetiapine Fumarate [Quetiapine 300 mg PO QPM 11/04/17 11/04/17 Fumarate ER] Benzonatate [Tessalon Perle] 100 - 200 mg PO TID PRN #30 capsule 11/03/19 predniSONE [Deltasone] 20 mg PO [id number] #21 tab 11/03/19 - Allergies Allergies/Adverse Reactions: Allergies Allergy/AdvReac Type Severity Reaction Status Date / Time Penicillins AdvReac Hives Verified 11/13/19 00:34 PD ED PE NORMAL - Vitals Vital signs reviewed: Yes - General General: Alert and oriented X 3, No acute distress, Well developed/nourished - HEENT HEENT: PERRL, Moist mucous membranes - Neck Neck: Supple, no meningeal sign - Cardiac Cardiac: RRR, No murmur, Strong equal pulses - Respiratory Respiratory: No respiratory distress, Clear bilaterally - Abdomen Abdomen: Normal bowel sounds, Soft, Non tender, Non distended - Derm Derm: Warm and dry - Extremities Extremities: No deformity - Neuro Neuro: Alert and oriented X 3, press manager 2-12 intact, No motor deficit, No sensory deficit, Normal speech - Psych Psych: Other (anxious) Results - Vitals Vitals: Vital Signs - 24 hr 11/13/19 11/13/19 11/13/19 00:30 00:41 00:51 Temperature 36.8 C Heart Rate 130 H 115 H Respiratory 22 19 18 Rate Blood Pressure 119/99 H O2 Saturation 95 99 11/13/19 00:58 Temperature Heart Rate 104 H Respiratory 17 Rate Blood Pressure 135/86 H O2 Saturation 96 Oxygen O2 Source Room air - EKG (time done) 00:32 Rate: Other (no stemi) PD MEDICAL DECISION MAKING - ED course Complexity details: considered differential (panic attack, anxiety, acute stress reaction, adjustment disorder) Departure - Departure Disposition: 01 Home, Self Care Clinical Impression: Panic attack as reaction to stress Condition: Stable Instructions: ED Panic Attack Follow-Up: DEMETRIO ROBERTS MD [Physician No Access] - 11/13/19
[2019-11-13] MEDS ORDERED: LORazepam 1 MG TABLET PO STA (00:31)
[2019-11-13 02:01] VITALS: BP 112/78
== END 2019-11-13 02:35 | disposition home or self-care (01) ==
LOC: EDUNIT# → ED 00:24
DX: F43.0 Acute stress reaction (principal)
CPT/HCPCS: 93005; 99283; 99284; J8499

== ENCOUNTER 2019-11-18 20:24 | Emergency (ER) | payer OTHER ==
[2019-11-18 20:31] VITALS: BP 149/87
--- NOTE | 2019-11-18 20:47 | ED Physician Documentation ---
History of Present Illness - Stated complaint Stated Complaint: R LEG LUMP - Chief complaint Chief Complaint: General - History obtained from History obtained from: Patient - History of Present Illness Timing: Today Pain level max: 0 Pain level now: 0 - Additonal information Additional information: 39-year-old female states that she has a bruise on her right thigh that she does not recall how this happened. She is concerned because she feels swelling underneath of it. Nothing makes it better or worse. 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 : None HEENT: None Psych: Depression, Anxiety, Panic attacks Musculoskeletal: None Derm: None - Past Surgical History Past Surgical History: Yes /GRINDER HAND: Breast reduction - Present Medications Home Medications: Ambulatory Orders Medication Instructions Recorded Confirmed Citalopram [CeleXA] 30 mg PO DAILY 11/04/17 11/04/17 Divalproex Sodium [Divalproex 500 mg PO QPM 11/04/17 11/04/17 Sodium ER] LORazepam [Ativan] 0.5 mg PO HS 11/04/17 11/04/17 Quetiapine Fumarate 300 mg PO QPM 11/04/17 11/04/17 Quetiapine Fumarate [Quetiapine 300 mg PO QPM 11/04/17 11/04/17 Fumarate ER] Benzonatate [Tessalon Perle] 100 - 200 mg PO TID PRN #30 capsule 11/03/19 predniSONE [Deltasone] 20 mg PO [id number] #21 tab 11/03/19 - Allergies Allergies/Adverse Reactions: Allergies Allergy/AdvReac Type Severity Reaction Status Date / Time Penicillins AdvReac Hives Verified 11/18/19 20:27 - Social History Does the pt smoke?: Yes Smoking Status: Current every day smoker Does the pt drink ETOH?: No Does the pt have substance abuse?: No - Immunizations Immunizations are current?: Yes - POLST Patient has POLST: No PD ED PE NORMAL - Vitals Vital signs reviewed: Yes - General General: Alert and oriented X 3, Well developed/nourished, Other (Appears very anxious) - HEENT HEENT: Moist mucous membranes - Neck Neck: Supple, no meningeal sign - Derm Derm: Warm and dry - Extremities Extremities: Other (Small 1 cm ecchymosis to the lateral aspect of the right thigh, mid thigh. Neurovascular intact. No erythema. No abscess. Otherwise normal examination of the leg) - Neuro Neuro: Alert and oriented X 3 - Psych Psych: Normal mood, Normal affect Results - Vitals Vitals: Vital Signs - 24 hr 11/18/19 11/18/19 20:27 21:12 Temperature 36.5 C Heart Rate 107 H 98 Respiratory 16 20 Rate Blood Pressure 149/87 H O2 Saturation 97 98 Oxygen O2 Source Room air PD MEDICAL DECISION MAKING - ED course Complexity details: considered differential, d/w patient ED course: Patient with a small bruise on the lateral aspect of the right thigh. No evidence of DVT. No evidence of superficial thrombophlebitis. No cellulitis. No abscess. Patient counseled regarding signs and symptoms for which I believe and urgent re-evaluation would be necessary. Patient with good understanding of and agreement to plan and is comfortable going home at this time This document was made in part using voice recognition software. While efforts are made to proofread this document, sound alike and grammatical errors may occur. Departure - Departure Disposition: 01 Home, Self Care Clinical Impression: Ecchymosis Condition: Good Instructions: ED Contusion Soft Tissue Follow-Up: your,doctor in 1 week [Other] Comments: Return if you worsen. Follow up with your doctor for further care. Discharge Date/Time: 11/18/19 21:12
== END 2019-11-18 21:12 | disposition home or self-care (01) ==
LOC: ED 20:24
DX: R58 Hemorrhage, not elsewhere classified (principal); F17.200 Nicotine dependence, unspecified, uncomplicated
CPT/HCPCS: 99281; 99284

== ENCOUNTER 2019-12-08 08:16 | Emergency (ER) | payer OTHER ==
--- NOTE | 2019-12-08 08:41 | ED Physician Documentation ---
PD HPI ABD PAIN - Stated complaint Stated Complaint: ABD PX - Chief complaint Chief Complaint: Abd Pain - History obtained from History obtained from: Patient - History of Present Illness Timing - onset: How many hours ago (2), Today Timing - duration: Hours (2) Timing - details: Abrupt onset, Still present Quality: Cramping, Aching, Pain Location: RLQ, Suprapubic Radiation: No: Chest, Lower back, Right flank Improved by: No: Vomiting, Position Worsened by: Moving, Position (lying flat). No: Breathing Associated symptoms: Nausea, Vomiting. No: Fever, Hematemesis, Diarrhea (normal BM yesterday), Constipation, Dysuria Similar symptoms before: Has not had sx before (intermittent abd pains in the past, but not as abrupt and persistent as the current pain.) Review of Systems Constitutional: denies: Fever, Chills Nose: denies: Rhinorrhea / runny nose, Congestion Throat: denies: Sore throat Respiratory: denies: Cough GI: reports: Abdominal Pain, Nausea, Vomiting. denies: Abdominal Swelling, Constipation, Diarrhea, Bloody / black stool : denies: Dysuria, Frequency, Discharge Skin: denies: Rash, Abrasion (s) Musculoskeletal: denies: Back pain Neurologic: reports: Generalized weakness. 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 : None HEENT: None Psych: Depression, Anxiety, Panic attacks Musculoskeletal: None Derm: None - Past Surgical History Past Surgical History: Yes /FORGE HELPER: Breast reduction - Present Medications Home Medications: Ambulatory Orders Medication Instructions Recorded Confirmed Citalopram [CeleXA] 30 mg PO DAILY 11/04/17 12/08/19 Divalproex Sodium [Divalproex 500 mg PO QPM 11/04/17 12/08/19 Sodium ER] LORazepam [Ativan] 0.5 mg PO HS 11/04/17 12/08/19 Quetiapine Fumarate 300 mg PO QPM 11/04/17 12/08/19 Quetiapine Fumarate [Quetiapine 300 mg PO QPM 11/04/17 12/08/19 Fumarate ER] Docusate Sodium 100 mg PO DAILY #30 capsule 05/24/20 Multivit with Calcium,Iron,Min 1 each PO DAILY 12/08/19 12/08/19 [Multiple Vitamins For Women] Naproxen 500 mg PO BID #20 tablet 12/08/19 - Allergies Allergies/Adverse Reactions: Allergies Allergy/AdvReac Type Severity Reaction Status Date / Time Penicillins AdvReac Hives Verified 11/18/19 20:27 - Social History Does the pt smoke?: Yes Smoking Status: Current every day smoker Does the pt drink ETOH?: No Does the pt have substance abuse?: No - Immunizations Immunizations are current?: Yes - POLST Patient has POLST: No PD ED PE NORMAL - Vitals Vital signs reviewed: Yes - General General: Alert and oriented X 3, Well developed/nourished, Other (appears very uncomfortable with knees drawn up, waves of severe pain with her crying and moaning.) - HEENT HEENT: Pharynx benign - Neck Neck: Supple, no meningeal sign, No adenopathy - Cardiac Cardiac: RRR, No murmur - Respiratory Respiratory: Clear bilaterally - Abdomen Abdomen: Soft, Non distended, No organomegaly, Other. No: Normal bowel sounds (diminished) - Female Female : Deferred - Rectal Rectal: Deferred - Back Back: No CVA TTP - Derm Derm: Normal color, Warm and dry - Extremities Extremities: No tenderness to palpate, Normal ROM s pain, No edema, No calf tenderness / cord - Neuro Neuro: Alert and oriented X 3, No motor deficit, Normal speech Eye Opening: Spontaneous Motor: Obeys Commands Verbal: Oriented GCS Score: 15 Results - Vitals Vitals: Oxygen O2 Source Room air - Labs Labs: Laboratory Tests 12/08/19 12/08/19 12/08/19 08:45 08:45 08:45 WBC 11.3 H RBC 4.79 Hgb 14.1 Hct 41.8 MCV 87.3 MCH 29.4 MCHC 33.7 RDW 13.2 Plt Count 265 MPV 9.9 Neut # (Auto) 8.7 H Lymph # (Auto) 1.4 L [place] # (Auto) 1.1 H Eos # (Auto) 0.0 Baso # (Auto) 0.1 Absolute Nucleated RBC 0.00 Nucleated RBC % 0.0 Sodium 136 Potassium 3.8 Chloride 104 Carbon Dioxide 21 Anion Gap 11.0 BUN 20 Creatinine 0.8 Estimated GFR (MDRD) 81 L Glucose 116 H Lactic Acid Calcium 9.5 Total Bilirubin 0.9 AST 21 ALT 12 Alkaline Phosphatase 23 L Total Protein 6.7 Albumin 3.5 Globulin 3.2 Albumin/Globulin Ratio 1.1 Lipase 24 Serum HCG, Qual NEGATIVE Urine Color Urine Clarity Urine pH Ur Specific [place] Urine Protein Urine Glucose (UA) Urine Ketones Urine Occult Blood Urine Nitrite Urine Bilirubin Urine Urobilinogen Ur Leukocyte Esterase Urine RBC Urine WBC Ur Squamous Epith Cells Urine Bacteria Ur Microscopic Review Urine Culture Comments 12/08/19 12/08/19 12/08/19 09:15 09:18 12:50 WBC RBC Hgb Hct MCV MCH MCHC RDW Plt Count MPV Neut # (Auto) Lymph # (Auto) [place] # (Auto) Eos # (Auto) Baso # (Auto) Absolute Nucleated RBC Nucleated RBC % Sodium Potassium Chloride Carbon Dioxide Anion Gap BUN Creatinine Estimated GFR (MDRD) Glucose Lactic Acid 3.2 H* 1.3 Calcium Total Bilirubin AST ALT Alkaline Phosphatase Total Protein Albumin Globulin Albumin/Globulin Ratio Lipase Serum HCG, Qual Urine Color DARK YELLOW Urine Clarity HAZY Urine pH 8.5 H Ur Specific [place] 1.015 Urine Protein 30 H Urine Glucose (UA) NEGATIVE Urine Ketones TRACE Urine Occult Blood LARGE H Urine Nitrite NEGATIVE Urine Bilirubin NEGATIVE Urine Urobilinogen 2 H Ur Leukocyte Esterase TRACE H Urine RBC TNTC H Urine WBC 0-3 Ur Squamous Epith Cells MOD Squamous H Urine Bacteria None Seen Ur Microscopic Review INDICATED Urine Culture Comments NOT INDICATED - Rads (name of study) abd pelvic CT Radiology: Prelim report reviewed (mild free fluid pelvis on right. Small area wall thickening mild in sigmoid colon suggesting possible mild colitis. No nearby diverticula.), See rad report PD MEDICAL DECISION MAKING - ED course Complexity details: reviewed results (Some free fluid in pelvis so consider possible ruptured cyst, which would fit clinically. Normal ovary, which CT should be able to eval for torsion, so excludes that. No kidney stones. Small area of wall thickening in sigmoid colon suggesting possible mild colitis, but no local diverticula or such. ), re-evaluated patient (feeling much better with IV meds. Recheck abd minimally tender lower left and right tender. ), considered differential (significant pain on exam. Concern for internal bleeding, ovarian t orsion, kidney stone, bowel obstruction, etc. ), d/w patient Departure - Departure Disposition: 01 Home, Self Care Clinical Impression: Lower abdominal pain Condition: Stable Record reviewed to determine appropriate education?: Yes Instructions: ED Abdominal Pain Unkn Cause Follow-Up: DEMETRIO ROBERTS MD [Primary Care Provider] - Prescriptions: Docusate Sodium 100 mg PO DAILY #30 capsule Naproxen 500 mg PO BID #20 tablet Comments: Stay well-hydrated. Use naproxen anti-inflammatory twice daily with food for the next several days to week. This will help with decreasing any irritation in the pelvic floor assuming this was a small ruptured cyst. There was some hint of inflammation in the sigmoid colon on the CT as well and the anti-inflammatory would be helpful there as well. Stool softener would also be helpful docusate once or twice daily for the next several days and then once daily for a week after that. Add Tylenol if needed for pains. Recheck if worsening symptoms again or on develop anything new such as fever, generalized pain, bloody stool, other concerns. Discharge Date/Time: 12/08/19 13:45
[2019-12-08] MEDS ORDERED: SODIUM CHLORIDE 0.9% 1,000 ML IV STA (09:03)
[2019-12-08] MEDS ORDERED: HYDROmorphone 1 MG/ML CARPUJECT IVP STA (09:03)
[2019-12-08] MEDS ORDERED: KETOROLAC 15 MG/ML VIAL IVP STA (09:03)
[2019-12-08 09:06] LABS: BASOPHILS # (AUTO) 0.1 10^3/uL (0.0-0.1); BASOPHILS % (AUTO) 0.4 %; EOSINOPHILS % (AUTO) 0.3 %; HGB - HEMOGLOBIN 14.1 g/dL (12.0-16.0); LYMPHOCYTES # (AUTO) 1.4 10^3/uL (1.5-3.5); LYMPHOCYTES % (AUTO) 12.3 %; MEAN CORPUSCULAR HEMOGLOBIN 29.4 pg (27.0-31.0); MEAN CORPUSCULAR HGB CONC 33.7 g/dL (32.0-36.0); MEAN CORPUSCULAR VOLUME 87.3 fL (81.0-99.0); MEAN PLATELET VOLUME 9.9 fL (7.9-10.8); MONOCYTES # (AUTO) 1.1 10^3/uL (0.0-1.0); MONOCYTES % (AUTO) 9.4 %; NEUTROPHILS # (AUTO) 8.7 10^3/uL (1.5-6.6); NEUTROPHILS % (AUTO) 77.2 %; PLT - PLATELET COUNT 265 10^3/uL (130-450); RED BLOOD COUNT 4.79 10^6/uL (4.20-5.40); RED CELL DISTRIBUTION WIDTH 13.2 % (12.0-15.0); WHITE BLOOD COUNT 11.3 x10^3/uL (4.8-10.8)
[2019-12-08] MEDS ORDERED: IOVERSOL 320 100 ML VIAL IVP ONE ×2 (09:15→11:45)
[2019-12-08 09:19] LABS: ALBUMIN 3.5 g/dL (3.2-5.5); ALBUMIN/GLOBULIN RATIO 1.1 (1.0-2.2); BILIRUBIN,TOTAL 0.9 mg/dL (0.2-1.0); CALCIUM 9.5 mg/dL (8.5-10.3); CREATININE 0.8 mg/dL (0.4-1.0); TOTAL PROTEIN 6.7 g/dL (6.7-8.2)
[2019-12-08 09:30] LABS: GLUCOSE, URINE (UA) NEGATIVE (NEGATIVE); KETONES,URINE (UA) TRACE mg/dL (NEGATIVE); LEUKOCYTE ESTERASE, URINE TRACE (NEGATIVE); NITRITE,URINE NEGATIVE (NEGATIVE); OCCULT BLOOD,URINE LARGE (NEGATIVE); PH,URINE 8.5 PH (5.0-7.5); PROTEIN,URINE 30 mg/dL (NEGATIVE); UROBILINOGEN,URINE 2 E.U./dL (NORMAL)
[2019-12-08 09:37] LABS: CLARITY,URINE HAZY (CLEAR)
[2019-12-08 09:38] LABS: BILIRUBIN,URINE NEGATIVE (NEGATIVE); ICTOTEST,URINE NEGATIVE
[2019-12-08 09:39] LABS: HCG,QUALITATIVE BLOOD NEGATIVE
[2019-12-08 09:48] LABS: BACTERIA,URINE None Seen /HPF (None Seen); RBC,URINE TNTC /HPF (0-5); SQUAMOUS EPITHELIAL CELL,UR MOD Squamous (<= Few)
--- NOTE | 2019-12-08 11:10 | CT Report ---
Reason: lower abd pain, onset abrupt this AM Procedure Date: 12/08/2019 Accession Number: [id number] / [id number] Procedure: CT - Abdomen/Pelvis W CPT Code: Final Report FULL RESULT: EXAM: CT ABDOMEN AND PELVIS EXAM DATE: 12/08/2019 10:27 AM. CLINICAL HISTORY: Lower abdominal pain, abrupt onset this morning. COMPARISONS: None. TECHNIQUE: Routine helical CT imaging was performed through the abdomen and pelvis. IV contrast: 100 mL Optiray 320. Enteric contrast: No. Reconstructions: Coronal and sagittal. In accordance with CT protocol optimization, one or more of the following dose reduction techniques were utilized for this exam: automated exposure control, adjustment of mA and/or KV based on patient size, or use of iterative reconstructive technique. FINDINGS: Lung Bases: Mild dependent atelectasis. Liver: Normal. No focal hepatic lesion. Gallbladder/Bile Ducts: Unremarkable. No visualized stones or biliary ductal dilatation. Spleen: Normal. Pancreas: Normal. Adrenal Glands: Normal. Kidneys and Ureters: A circumscribed subcentimeter hypoattenuating focus in the medial right upper pole cortex is too small to characterize further but likely represents a cyst; no imaging follow-up is recommended per consensus recommendations based on imaging criteria. No stones, hydronephrosis, or hydroureter. Peritoneal Cavity/Bowel: Subtle mesenteric hyperemia adjacent to the sigmoid colon. No evidence for bowel obstruction. The appendix is normal. Trace intrapelvic free fluid. No pneumoperitoneum or adenopathy. Pelvic Organs: 1.9 cm circumscribed low attenuation focus in the anterior cervix, which could represent a complex nabothian cyst or cervical fibroid.Otherwise unremarkable appearance of the bladder, uterus, and ovaries. Vasculature: Unremarkable. Bones: Minimal right convex curvature centered at T12. No acute bony abnormality. Other: None. IMPRESSION: Possible mild sigmoid colitis. No other potential acute process identified to explain abdominal pain. RADIA
[2019-12-08] MEDS ORDERED: DOCUSATE SODIUM 100 MG CAPSULE PO STA (12:21)
[2019-12-08] MEDS ORDERED: GLYCERIN ADULT SUPP PR STA (12:21)
[2019-12-08 13:07] VITALS: BP 113/76
== END 2019-12-08 13:45 | disposition home or self-care (01) ==
LOC: ED 08:16
DX: R10.30 Lower abdominal pain, unspecified (principal); F17.200 Nicotine dependence, unspecified, uncomplicated
CPT/HCPCS: 36415; 74177; 80053; 81001; 83605; 83690; 84703; 85025; 96361; 96374; 99284; A9270; J1170; Q9967; 81003; 87086

== ENCOUNTER 2020-01-02 10:00 | Emergency (ER) | payer OTHER ==
[2020-01-02 10:36] LABS: BASOPHILS # (AUTO) 0.1 10^3/uL (0.0-0.1); BASOPHILS % (AUTO) 0.9 %; EOSINOPHILS # (AUTO) 0.1 10^3/uL (0.0-0.7); EOSINOPHILS % (AUTO) 0.9 %; HGB - HEMOGLOBIN 14.2 g/dL (12.0-16.0); LYMPHOCYTES # (AUTO) 1.6 10^3/uL (1.5-3.5); MEAN CORPUSCULAR HEMOGLOBIN 31.3 pg (27.0-31.0); MEAN CORPUSCULAR HGB CONC 34.5 g/dL (32.0-36.0); MEAN CORPUSCULAR VOLUME 90.7 fL (81.0-99.0); MEAN PLATELET VOLUME 9.6 fL (7.9-10.8); MONOCYTES # (AUTO) 0.5 10^3/uL (0.0-1.0); MONOCYTES % (AUTO) 10.1 %; NEUTROPHILS # (AUTO) 3.1 10^3/uL (1.5-6.6); NEUTROPHILS % (AUTO) 57.7 %; PLT - PLATELET COUNT 207 10^3/uL (130-450); RED BLOOD COUNT 4.54 10^6/uL (4.20-5.40); RED CELL DISTRIBUTION WIDTH 13.3 % (12.0-15.0); WHITE BLOOD COUNT 5.3 x10^3/uL (4.8-10.8)
[2020-01-02 10:41] LABS: PT - PROTHROMBIN TIME 11.8 secs (9.9-12.6)
[2020-01-02 10:50] LABS: ALBUMIN/GLOBULIN RATIO 1.2 (1.0-2.2); BILIRUBIN,TOTAL 0.7 mg/dL (0.2-1.0); CALCIUM 9.4 mg/dL (8.5-10.3); CREATININE 0.8 mg/dL (0.4-1.0); TOTAL PROTEIN 7.3 g/dL (6.7-8.2)
--- NOTE | 2020-01-02 11:10 | ED Physician Documentation ---
PD HPI GI BLEED - Stated complaint Stated Complaint: ABD PAIN - Chief complaint Chief Complaint: Abd Pain - History obtained from History obtained from: Patient - History of Present Illness Timing - onset: How many days ago (3) Timing - duration: Days (3) Timing - details: Gradual onset, Still present Associated symptoms: BRBPR Contributing factors: NSAID use Improved by: BM Similar symptoms before: Has not had sx before Recently seen: Emergency Dept - Additional information Additional information: Previous well 39-year-old female with a history of polycystic ovary syndrome has been into the emergency department recently for abdominal pain and this was thought to be secondary to a ruptured hemorrhagic cyst. She has been taking some Naprosyn she finished that last week and has not taken any for the past week. 3 days ago she developed blood with her bowel movements. She states the blood is bright red and present on the outside of the stool as well as when she wipes. She states it appears to fill the commode with blood. She has not had bleeding in between bowel movements. She has had 5 bowel movements in the past 3 days all of them associated with some blood loss. She does not have blood loss in between the bowel movements. She is not lightheaded or dizzy. She does not have fever or vomiting. She states her bowel movements are otherwise normal. When she was seen in the emergency department last month she had a CT scan done of the abdomen pelvis which demonstrated some trace free fluid in the pelvis (this is difficult to see on the scan when I look at it myself) and there was some inflammation in the mesentery to suggest sigmoid colitis. Review of Systems Constitutional: reports: Fatigue. denies: Fever, Chills Eyes: denies: Decreased vision Ears: denies: Ear pain Nose: denies: Rhinorrhea / runny nose, Congestion Throat: denies: Sore throat Cardiac: denies: Chest pain / pressure, Palpitations Respiratory: denies: Dyspnea, Cough GI: reports: Abdominal Pain, Bloody / black stool. 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: Breast reduction - Present Medications Home Medications: Ambulatory Orders Medication Instructions Recorded Confirmed Citalopram [CeleXA] 30 mg PO DAILY 11/04/17 12/08/19 Divalproex Sodium [Divalproex 500 mg PO QPM 11/04/17 12/08/19 Sodium ER] LORazepam [Ativan] 0.5 mg PO HS 11/04/17 12/08/19 Quetiapine Fumarate 300 mg PO QPM 11/04/17 12/08/19 Quetiapine Fumarate [Quetiapine 300 mg PO QPM 11/04/17 12/08/19 Fumarate ER] Docusate Sodium 100 mg PO DAILY #30 capsule 12/08/19 Multivit with Calcium,Iron,Min 1 each PO DAILY 12/08/19 12/08/19 [Multiple Vitamins For Women] Naproxen 500 mg PO BID #20 tablet 12/08/19 metroNIDAZOLE [Flagyl] 500 mg PO BID #14 tablet 01/02/20 - Allergies Allergies/Adverse Reactions: Allergies Allergy/AdvReac Type Severity Reaction Status Date / Time Penicillins AdvReac Hives Verified 01/02/20 10:11 - Social History Does the pt smoke?: Yes Smoking Status: Current every day smoker Does the pt drink ETOH?: No Does the pt have substance abuse?: No - Immunizations Immunizations are current?: Yes - POLST Patient has POLST: No PD ED PE NORMAL - Vitals Vital signs reviewed: Yes (tachy ) - General General: Alert and oriented X 3, No acute distress, Well developed/nourished - HEENT HEENT: Atraumatic, PERRL, EOMI - Neck Neck: Supple, no meningeal sign - Cardiac Cardiac: RRR, No murmur - Respiratory Respiratory: No respiratory distress, Clear bilaterally - Abdomen Abdomen: Normal bowel sounds, Soft, Non tender, Non distended, No organomegaly - Rectal Rectal: Other (with [place] as a goal umpire the rectum is examined. There are no external hemorrhoids, The sphincter tone is normal and there is an internal hemo rrhoid at 4'oclock. There is stool with old blood on the glove. There is not tenderness. ) - Back Back: No CVA TTP, No spinal TTP - Derm Derm: Normal color, Warm and dry, No rash - Extremities Extremities: No deformity, No edema, No calf tenderness / cord - Neuro Neuro: Alert and oriented X 3, pressure supervisor 2-12 intact, No motor deficit, No sensory deficit, Normal speech Eye Opening: Spontaneous Motor: Obeys Commands Verbal: Oriented GCS Score: 15 - Psych Psych: Normal mood, Normal affect Results - Vitals Vitals: Vital Signs - 24 hr 01/02/20 01/02/20 01/02/20 10:06 10:11 11:20 Temperature 36.8 C Heart Rate 115 H 110 H 112 H Respiratory 16 12 14 Rate Blood Pressure 128/77 130/74 128/74 O2 Saturation 96 98 98 Oxygen O2 Source Room air - Labs Labs: Laboratory Tests 01/02/20 01/02/20 01/02/20 10:25 10:25 10:25 WBC 5.3 RBC 4.54 Hgb 14.2 Hct 41.2 MCV 90.7 MCH 31.3 H MCHC 34.5 RDW 13.3 Plt Count 207 MPV 9.6 Neut # (Auto) 3.1 Lymph # (Auto) 1.6 [place] # (Auto) 0.5 Eos # (Auto) 0.1 Baso # (Auto) 0.1 Absolute Nucleated RBC 0.00 Nucleated RBC % 0.0 PT 11.8 INR 1.0 Sodium Potassium Chloride Carbon Dioxide Anion Gap BUN Creatinine Estimated GFR (MDRD) Glucose Calcium Total Bilirubin AST ALT Alkaline Phosphatase Total Protein Albumin Globulin Albumin/Globulin Ratio Lipase Blood Type O POSITIVE Blood Type Recheck Antibody Screen NEGATIVE 01/02/20 01/02/20 10:25 10:50 WBC RBC Hgb Hct MCV MCH MCHC RDW Plt Count MPV Neut # (Auto) Lymph # (Auto) [place] # (Auto) Eos # (Auto) Baso # (Auto) Absolute Nucleated RBC Nucleated RBC % PT INR Sodium 139 Potassium 4.1 Chloride 103 Carbon Dioxide 27 Anion Gap 9.0 BUN 17 Creatinine 0.8 Estimated GFR (MDRD) 81 L Glucose 101 H Calcium 9.4 Total Bilirubin 0.7 AST 16 ALT 11 Alkaline Phosphatase 24 L Total Protein 7.3 Albumin 4.0 Globulin 3.3 Albumin/Globulin Ratio 1.2 Lipase 32 Blood Type Blood Type Recheck O POSITIVE Antibody Screen PD MEDICAL DECISION MAKING - ED course Complexity details: considered differential, d/w patient ED course: 39-year-old female with abdominal pain 1 month ago denies any diarrhea but has now developed some blood in her stool. On her CAT scan 1 month ago she did have some mild inflammation around the sigmoid colon mesentery. My concern is this may be related to colitis and I have elected to use empiric antibiotic therapy and have a follow-up patient follow-up with the surgeon for colonoscopy. She does appear to have stable lower GI bleeding. She has been bleeding for 3 days and has normal blood counts. Departure - Departure Disposition: 01 Home, Self Care Clinical Impression: Colitis with rectal bleeding Condition: Stable Instructions: ED Gastroenteritis Bacterial, ED Hematochezia Stable Follow-Up: DEMETRIO ROBERTS MD [Primary Care Provider] - Sharath Miguel MD [Provider Admit Priv/Credential] - Prescriptions: metroNIDAZOLE [Flagyl] 500 mg PO BID #14 tablet
[2020-01-02 11:41] VITALS: BP 126/93
== END 2020-01-02 11:45 | disposition home or self-care (01) ==
LOC: ED 10:00
DX: K52.9 Noninfective gastroenteritis and colitis, unspecified (principal); K92.1 Melena; K64.8 Other hemorrhoids; F17.200 Nicotine dependence, unspecified, uncomplicated
CPT/HCPCS: 36415; 80053; 82272; 83690; 85025; 85610; 86850; 86900; 86901; 99283; 99284

== ENCOUNTER 2020-03-01 11:58 | Emergency (ER) | payer OTHER ==
--- NOTE | 2020-03-01 12:29 | XRAY Report ---
PROCEDURE: Chest 1 View X-Ray INDICATIONS: Chest Pain TECHNIQUE: One view of the chest was acquired. COMPARISON: 11/03/2019 FINDINGS: Surgical changes and devices: None. Lungs and pleura: No pleural effusions or pneumothorax. Lungs are clear. Mediastinum: Mediastinal contours appear normal. Heart size is normal. Bones and chest wall: No suspicious bony lesions. Overlying soft tissues appear unremarkable. IMPRESSION: Unremarkable portable chest, without significant change compared to the prior. Reviewed by: Damian Pérez MD on 03/01/2020 11:28 AM BRIELLE Approved by: Damian Pérez MD on 03/01/2020 11:28 AM BRIELLE Station ID: [id number]
[2020-03-01 12:42] LABS: BASOPHILS # (AUTO) 0.1 10^3/uL (0.0-0.1); BASOPHILS % (AUTO) 0.7 %; EOSINOPHILS % (AUTO) 0.6 %; HGB - HEMOGLOBIN 13.9 g/dL (12.0-16.0); LYMPHOCYTES # (AUTO) 1.8 10^3/uL (1.5-3.5); LYMPHOCYTES % (AUTO) 24.7 %; MEAN CORPUSCULAR HGB CONC 34.5 g/dL (32.0-36.0); MEAN PLATELET VOLUME 9.5 fL (7.9-10.8); MONOCYTES # (AUTO) 0.4 10^3/uL (0.0-1.0); MONOCYTES % (AUTO) 5.9 %; NEUTROPHILS # (AUTO) 4.9 10^3/uL (1.5-6.6); NEUTROPHILS % (AUTO) 67.4 %; PLT - PLATELET COUNT 240 10^3/uL (130-450); RED BLOOD COUNT 4.48 10^6/uL (4.20-5.40); RED CELL DISTRIBUTION WIDTH 12.5 % (12.0-15.0); WHITE BLOOD COUNT 7.3 x10^3/uL (4.8-10.8)
[2020-03-01 12:56] LABS: ALBUMIN 3.7 g/dL (3.2-5.5); ALBUMIN/GLOBULIN RATIO 1.2 (1.0-2.2); BILIRUBIN,TOTAL 0.6 mg/dL (0.2-1.0); CALCIUM 9.1 mg/dL (8.5-10.3); CREATININE 0.8 mg/dL (0.4-1.0); TOTAL PROTEIN 6.7 g/dL (6.7-8.2)
[2020-03-01] MEDS ORDERED: SODIUM CHLORIDE 0.9% 1,000 ML IV STA (13:57)
--- NOTE | 2020-03-01 13:59 | ED Physician Documentation ---
History of Present Illness - Stated complaint Stated Complaint: RACING HEART - Chief complaint Chief Complaint: Cardiac - History obtained from History obtained from: Patient - History of Present Illness Timing: Today - Additonal information Additional information: 39-year-old female reports that she awoke with drenched in sweat this morning and when she went to get up and get around she noticed that she was lightheaded and dizzy. She is come to the emergency department now for evaluation. She did get a bit nauseous with that as well. She states that she does not drink alcohol and that she is currently on her menses. 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 She states that she does not otherwise feel ill and she has not had a fever or cough. Review of Systems Constitutional: reports: Sweats. denies: Fever Eyes: denies: Decreased vision Ears: denies: Ear pain Nose: denies: Rhinorrhea / runny nose, Congestion Throat: denies: Sore throat Cardiac: denies: Chest pain / pressure, Palpitations Respiratory: denies: Dyspnea, Cough GI: reports: Bloody / black stool (2 months ago the patient saw a heavy equipment sales associate for blood in her stool and she has a bit of a fissure in the rectum.). denies: Abdominal Pain, Nausea, Vomiting, Constipation, Diarrhea : denies: Dysuria, Frequency Skin: denies: Rash Musculoskeletal: denies: Neck pain, Back pain, Extremity pain Neurologic: reports: Other (Dizziness and lightheadedness). 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: Breast reduction - Present Medications Home Medications: Ambulatory Orders Medication Instructions Recorded Confirmed Citalopram [CeleXA] 30 mg PO DAILY 11/04/17 12/08/19 Divalproex Sodium [Divalproex 500 mg PO QPM 11/04/17 12/08/19 Sodium ER] LORazepam [Ativan] 0.5 mg PO HS 11/04/17 12/08/19 Quetiapine Fumarate 300 mg PO QPM 11/04/17 12/08/19 Quetiapine Fumarate [Quetiapine 300 mg PO QPM 11/04/17 12/08/19 Fumarate ER] Docusate Sodium 100 mg PO DAILY #30 capsule 12/08/19 Multivit with Calcium,Iron,Min 1 each PO DAILY 12/08/19 12/08/19 [Multiple Vitamins For Women] Naproxen 500 mg PO BID #20 tablet 12/08/19 metroNIDAZOLE [Flagyl] 500 mg PO BID #14 tablet 01/02/20 - Allergies Allergies/Adverse Reactions: Allergies Allergy/AdvReac Type Severity Reaction Status Date / Time Penicillins AdvReac Hives Verified 03/01/20 12:09 - Social History Does the pt smoke?: Yes Smoking Status: Current every day smoker Does the pt drink ETOH?: No Does the pt have substance abuse?: No - Immunizations Immunizations are current?: Yes - POLST Patient has POLST: No PD ED PE NORMAL - Vitals Vital signs reviewed: Yes (Tachycardic) - General General: Alert and oriented X 3, No acute distress, Well developed/nourished - HEENT HEENT: Atraumatic, PERRL, EOMI, Ears normal, Moist mucous membranes, Pharynx benign, Dentition benign - Neck Neck: Supple, no meningeal sign, No bony TTP - Cardiac Cardiac: RRR, No murmur - Respiratory Respiratory: No respiratory distress, Clear bilaterally - Abdomen Abdomen: Normal bowel sounds, Soft, Non tender, Non distended, No organomegaly - Back Back: No CVA TTP, No spinal TTP - Derm Derm: Normal color, Warm and dry, No rash - Extremities Extremities: No deformity, No edema - Neuro Neuro: Alert and oriented X 3, cookie mixer helper 2-12 intact, No motor deficit, No sensory deficit, Normal speech Eye Opening: Spontaneous Motor: Obeys Commands Verbal: Oriented GCS Score: 15 - Psych Psych: Normal mood, Normal affect Results - Vitals Vitals: Vital Signs - 24 hr 03/01/20 03/01/20 03/01/20 12:09 12:48 13:00 Temperature 37 C Heart Rate 120 H 96 95 Respiratory 22 16 13 Rate Blood Pressure 128/79 113/75 O2 Saturation 98 96 94 03/01/20 14:30 Temperature Heart Rate 92 Respiratory 14 Rate Blood Pressure 125/78 O2 Saturation 95 Oxygen O2 Source Room air - Labs Labs: Laboratory Tests 03/01/20 03/01/20 03/01/20 12:25 12:25 12:25 WBC 7.3 RBC 4.48 Hgb 13.9 Hct 40.3 MCV 90.0 MCH 31.0 MCHC 34.5 RDW 12.5 Plt Count 240 MPV 9.5 Neut # (Auto) 4.9 Lymph # (Auto) 1.8 [place] # (Auto) 0.4 Eos # (Auto) 0.0 Baso # (Auto) 0.1 Absolute Nucleated RBC 0.00 Nucleated RBC % 0.0 Sodium 136 Potassium 3.6 Chloride 103 Carbon Dioxide 21 Anion Gap 12.0 BUN 16 Creatinine 0.8 Estimated GFR (MDRD) 81 L Glucose 179 H Calcium 9.1 Total Bilirubin 0.6 AST 17 ALT 11 Alkaline Phosphatase 25 L Troponin I High Sens < 2.3 L Total Protein 6.7 Albumin 3.7 Globulin 3.0 Albumin/Globulin Ratio 1.2 Lipase 27 Urine Color Urine Clarity Urine pH Ur Specific [place] Urine Protein Urine Glucose (UA) Urine Ketones Urine Occult Blood Urine Nitrite Urine Bilirubin Urine Urobilinogen Ur Leukocyte Esterase Urine RBC Urine WBC Ur Squamous Epith Cells Urine Bacteria Ur Microscopic Review Urine Culture Comments 03/01/20 14:40 WBC RBC Hgb Hct MCV MCH MCHC RDW Plt Count MPV Neut # (Auto) Lymph # (Auto) [place] # (Auto) Eos # (Auto) Baso # (Auto) Absolute Nucleated RBC Nucleated RBC % Sodium Potassium Chloride Carbon Dioxide Anion Gap BUN Creatinine Estimated GFR (MDRD) Glucose Calcium Total Bilirubin AST ALT Alkaline Phosphatase Troponin I High Sens Total Protein Albumin Globulin Albumin/Globulin Ratio Lipase Urine Color RED/BLOODY Urine Clarity CLOUDY Urine pH 7.5 Ur Specific [place] 1.020 Urine Protein 30 H Urine Glucose (UA) NEGATIVE Urine Ketones NEGATIVE Urine Occult Blood LARGE H Urine Nitrite NEGATIVE Urine Bilirubin NEGATIVE Urine Urobilinogen 0.2 (NORMAL) Ur Leukocyte Esterase NEGATIVE Urine RBC TNTC H Urine WBC 0-3 Ur Squamous Epith Cells RARE Squamous Urine Bacteria None Seen Ur Microscopic Review INDICATED Urine Culture Comments NOT INDICATED Procedures - IVC sono (time) 1350 Bedside IVC sono: IVC measures (cm) (1.05), IVC collapsed c insp (cm) (complete), Dehydration (est 1+ liter deficit) PD MEDICAL DECISION MAKING - ED course Complexity details: reviewed old records, reviewed results, re-evaluated patient, considered differential, d/w patient ED course: 39-year-old female with lightheadedness and dizziness is found to be dehydrated on interrogation the inferior vena cava and normal saline is begun. Departure - Departure Disposition: 01 Home, Self Care Clinical Impression: Dehydration Condition: Stable Instructions: ED Dehydration Follow-Up: DEMETRIO ROBERTS MD [Primary Care Provider] -
[2020-03-01 14:53] LABS: BILIRUBIN,URINE NEGATIVE (NEGATIVE); GLUCOSE, URINE (UA) NEGATIVE (NEGATIVE); KETONES,URINE (UA) NEGATIVE (NEGATIVE); LEUKOCYTE ESTERASE, URINE NEGATIVE (NEGATIVE); NITRITE,URINE NEGATIVE (NEGATIVE); OCCULT BLOOD,URINE LARGE (NEGATIVE); PH,URINE 7.5 PH (5.0-7.5); PROTEIN,URINE 30 mg/dL (NEGATIVE); UROBILINOGEN,URINE 0.2 (NORMAL) E.U./dL (NORMAL)
[2020-03-01 14:57] LABS: CLARITY,URINE CLOUDY (CLEAR)
[2020-03-01 15:09] LABS: BACTERIA,URINE None Seen /HPF (None Seen); RBC,URINE TNTC /HPF (0-5); SQUAMOUS EPITHELIAL CELL,UR RARE Squamous (<= Few)
[2020-03-01 15:14] VITALS: BP 113/69
[2020-03-01 15:18] LABS: HCG UR QUAL NEGATIVE
== END 2020-03-01 15:25 | disposition home or self-care (01) ==
LOC: ED 11:58
DX: E86.0 Dehydration (principal); F17.200 Nicotine dependence, unspecified, uncomplicated
CPT/HCPCS: 36415; 71045; 80053; 81001; 81003; 81025; 83690; 84484; 85025; 87086; 93005; 96360; 99283

== ENCOUNTER 2020-03-09 21:50 | Emergency (ER) | payer OTHER ==
[2020-03-09 22:14] LABS: BASOPHILS % (AUTO) 0.4 %; EOSINOPHILS # (AUTO) 0.1 10^3/uL (0.0-0.7); EOSINOPHILS % (AUTO) 0.6 %; HGB - HEMOGLOBIN 13.1 g/dL (12.0-16.0); LYMPHOCYTES # (AUTO) 2.3 10^3/uL (1.5-3.5); LYMPHOCYTES % (AUTO) 24.4 %; MEAN CORPUSCULAR HEMOGLOBIN 31.3 pg (27.0-31.0); MEAN CORPUSCULAR HGB CONC 34.7 g/dL (32.0-36.0); MEAN CORPUSCULAR VOLUME 90.2 fL (81.0-99.0); MEAN PLATELET VOLUME 9.2 fL (7.9-10.8); MONOCYTES # (AUTO) 1.1 10^3/uL (0.0-1.0); MONOCYTES % (AUTO) 11.8 %; NEUTROPHILS # (AUTO) 5.7 10^3/uL (1.5-6.6); PLT - PLATELET COUNT 228 10^3/uL (130-450); RED BLOOD COUNT 4.19 10^6/uL (4.20-5.40); RED CELL DISTRIBUTION WIDTH 12.5 % (12.0-15.0); WHITE BLOOD COUNT 9.3 x10^3/uL (4.8-10.8)
--- NOTE | 2020-03-09 22:14 | ED Physician Documentation ---
History of Present Illness - Stated complaint Stated Complaint: HEART RACING - Chief complaint Chief Complaint: Cardiac - History obtained from History obtained from: Patient - History of Present Illness Timing: Other (tonight) Pain level max: 0 Pain level now: 0 Improved by: nothing Worsened by: no exacerbating factors - Additonal information Additional information: per patient, "my heart feels like it's pounding out of my chest and I can't get my heart rate to slow down". This started tonight, gradual onset of rapid/pounding palpitations. She took her night medications (seroquel, 0.5mg lorazepam) but couldn't sleep due to ongoing palpitations. Review of Systems Constitutional: denies: Fever, Chills, Sweats Cardiac: reports: Palpitations. 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 cysts : None HEENT: None Psych: Depression, Anxiety, Panic attacks Musculoskeletal: None Derm: None - Past Surgical History Past Surgical History: Yes /SPORTS PHYSIOLOGIST: Breast reduction - Present Medications Home Medications: Ambulatory Orders Medication Instructions Recorded Confirmed LORazepam [Ativan] 0.5 mg PO HS 11/04/17 03/09/20 Divalproex Sodium [Depakote] 500 mg PO DAILY 03/09/20 03/09/20 QUEtiapine [SEROquel] 300 mg PO DAILY 03/09/20 03/09/20 Quetiapine Fumarate [Seroquel Xr] 300 mg PO DAILY 03/09/20 03/09/20 - Allergies Allergies/Adverse Reactions: Allergies Allergy/AdvReac Type Severity Reaction Status Date / Time Penicillins AdvReac Hives Verified 03/01/20 12:09 - Social History Does the pt smoke?: Yes Smoking Status: Current every day smoker Does the pt drink ETOH?: No Does the pt have substance abuse?: No - Immunizations Immunizations are current?: Yes - POLST Patient has POLST: No PD ED PE NORMAL - Vitals Vital signs reviewed: Yes - General General: Alert and oriented X 3, No acute distress, Well developed/nourished - HEENT HEENT: Moist mucous membranes - Neck Neck: Supple, no meningeal sign - Cardiac Cardiac: No murmur - Respiratory Respiratory: No respiratory distress, Clear bilaterally - Derm Derm: Normal color, Warm and dry - Extremities Extremities: No edema PD ED PE EXPANDED - Cardiac Cardiac: Tachy, Regular Rhythm Results - Vitals Vitals: Vital Signs - 24 hr 03/09/20 03/09/20 03/10/20 21:53 22:05 00:08 Temperature 36.5 C 36.5 C Heart Rate 122 H 85 101 H Respiratory 18 18 17 Rate Blood Pressure 123/66 123/66 115/75 O2 Saturation 97 97 96 03/10/20 01:39 Temperature 36.5 C Heart Rate 105 H Respiratory 17 Rate Blood Pressure 103/74 O2 Saturation 96 Oxygen O2 Source Room air - EKG (time done) No standard instances Rate: Rate (enter#) (116) Rhythm: Sinus tachycardia [place]: Normal Intervals: Normal CA QRS: Normal Ischemia: Normal ST segments - Labs Labs: Laboratory Tests 03/09/20 03/09/20 03/09/20 20:08 20:08 20:08 WBC 9.3 RBC 4.19 L Hgb 13.1 Hct 37.8 MCV 90.2 MCH 31.3 H MCHC 34.7 RDW 12.5 Plt Count 228 MPV 9.2 Neut # (Auto) 5.7 Lymph # (Auto) 2.3 [place] # (Auto) 1.1 H Eos # (Auto) 0.1 Baso # (Auto) 0.0 Absolute Nucleated RBC 0.00 Nucleated RBC % 0.0 Sodium 138 Potassium 3.8 Chloride 101 Carbon Dioxide 26 Anion Gap 11.0 BUN 23 H Creatinine 0.8 Estimated GFR (MDRD) 81 L Glucose 148 H Calcium 9.2 TSH 5.04 PD MEDICAL DECISION MAKING - ED course Complexity details: reviewed old records, reviewed results, re-evaluated patient, considered differential, d/w patient ED course: ST on monitor and EKG. No diagnostic results on CXR, EKG, blood tests, although noted to have high BUN w/ normal creatinine and thus given 2 liters NS total. She rested/slept for most of ED stay and noted to have heart rate down to upper 90s when asleep. Further emergent testing not indicated at this time, encouraged to f/u with PMD, return if worse Departure - Departure Disposition: 01 Home, Self Care Clinical Impression: Sinus tachycardia Instructions: Tachycardia Follow-Up: DEMETRIO ROBERTS MD [Primary Care Provider] - Discharge Date/Time: 03/10/20 01:40
[2020-03-09] MEDS ORDERED: SODIUM CHLORIDE 0.9% 1,000 ML IV STA ×2 (22:26→23:22)
[2020-03-09] MEDS ORDERED: LORazepam 2 MG/ML VIAL IVP STA (22:26)
[2020-03-09 22:38] LABS: CALCIUM 9.2 mg/dL (8.5-10.3); CREATININE 0.8 mg/dL (0.4-1.0)
[2020-03-10 01:39] VITALS: BP 103/74
== END 2020-03-10 01:40 | disposition home or self-care (01) ==
LOC: ED 21:50
DX: R00.0 Tachycardia, unspecified (principal); F17.200 Nicotine dependence, unspecified, uncomplicated
CPT/HCPCS: 36415; 80048; 84443; 85025; 93005; 96361; 96374; 99284; J2060; 80053; 83690; 84484